=== PATIENT | female | born 1940 | race Caucasian/White ===

== ENCOUNTER 2017-01-28 02:07 | Emergency (ER) | payer MEDICARE, OTHER ==
[~2017-01-28] VITALS: Ht 162.6 cm; Wt 74.1 kg
[~2017-01-28 02:07] MED LIST: ALBU18HF INH; CITA20TA11 PO; ERLO100T PO; FLUT12AE8 IH; FLUT9.9S NS; LOPE1TAB13 PO; METO25TA6 PO; MONT10TA23 PO; OXYC1TAB24 PO; PRAV20TA2 PO; PRE20 PO; WARF4TAB6 PO; ZOF8 PO
[2017-01-28 02:15] VITALS: BP 154/61; PULSE 81; RESP 24; O2SAT 94
--- NOTE | 2017-01-28 02:17 | ED.REPORT ---
HPI-Dyspnea / Wheezing Date of Service Jan 28, 2017 ED Provider: Jeevan Olivarez MD Patient is a 76 year old female with a history of pulmonary adenocarcinoma in remission, asthma, congestive heart failure, coronary artery disease, diabetes mellitus, hypertension, and paroxysmal atrial fibrillation who presents to the ED via EMS complaining of shortness of breath that awoke her from sleep this morning. She reports a 3 week history of productive cough. Patient reports that she has been intermittently short of breath since she developed a cough, but usually her symptoms improve with a nebulizer. She had 2x treatments this evening prior to calling EMS, 4x prior to arrival to the ED. She finished a course of Prednisone last week. She denies chest pain or a fever. Nursing Notes Stated Complaint: SHORT OF BREATH Chief Complaint: Respiratory Distress Nursing Notes Reviewed: Yes Allergies: Coded Allergies: Penicillins (Verified Allergy, Severe, Rash, 01/28/17) Scheduled Citalopram (Citalopram) 20 Mg Tablet 20 MG PO QAM Erlotinib HCl (Tarceva) 100 Mg Tablet 100 MG PO DAILY Fluticasone Propionate (Flovent HFA 110 mcg) 12 Gm Aer.w.adap 1 PUFF IH BID Fluticasone Propionate (Flonase Allergy Relief) 50 Mcg/Actuation [place].susp 9.9 ML NS DAILY Metoprolol Tartrate (Metoprolol Tartrate) 25 Mg Tablet 25 MG PO BID hold if b/p <105 or HR IS<60 Montelukast (Montelukast) 10 Mg Tablet 10 MG PO HS Pravastatin (Pravastatin) 20 Mg Tablet 20 MG PO am Prednisone (PredniSONE) 20 Mg Tablet 20 MG PO DAILY Warfarin Sodium (Warfarin Sodium) 4 Mg Tablet 4 MG PO DAILY Scheduled PRN Albuterol Sulfate (Ventolin HFA Inhaler) 200 Puff/18 Gm Inhaler 1 PUFF INH Q4 PRN PRN For Wheezing Loperamide/Simethicone (Imodium Multi-Symptom Rel Cplt) 1 Each Tablet 1 EACH PO PRN PRN PRN For Diarrhea or Loose Stool 2 tabs on first episode of diarrhea, then 1 tab for any further diarrhea Ondansetron (Zofran) 8 Mg Tablet 8 MG PO TID PRN PRN For Nausea oxyCODONE-Acetaminophen 5-325 mg (oxyCODONE-Acetaminophen 5-325 mg) 1 Each Tablet 1-2 TAB PO Q4H PRN PRN For Pain oxyCODONE-Acetaminophen 5-325 mg (oxyCODONE-Acetaminophen 5-325 mg) 1 Each Tablet 1-2 TAB PO Q6H PRN PRN For Pain General Time Seen by MD: 02:16 Chief Complaint Shortness of breath Hx Obtained From: Patient Arrived By: Ambulance Sudden in Onset?: No Onset Occurred: 1 - 4 hours ago Location: : None Severity: Current: No pain currently Severity: Maximum: No pain Recent Healthcare: No recent doctor visit, No recent hospitalization Similar Sx Previous: Yes Past Medical History Past Medical History Notes: Oncologist: Dr. Gonzalez Echocardiogram from March 03, 2011 showed LVEF of 60% to 65% with diastolic dysfunction. 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 Iron deficiency anemia Congestive heart failure, chronic, diastolic dysfunction Paroxysmal Atrial Fibrillation Peripheral vascular disease Reports: Asthma, Congestive heart failure, Coronary artery disease, Diabetes mellitus, Hyperlipidemia, Hypertension Past Surgical History Hemorrhoidectomy Lower extremity stents left nephrectomy Reports: Hysterectomy, Tonsillectomy Family History noncontributory Smoking History Former Smoker Social History Alcohol Use: "Social" Drug Use: Denies drug use Other Social History: Good social support, Local resident Occupation Noncontributory Ambulatory Status Independent Review of Systems Constitutional: Denies: Fever Respiratory: Reports: Non-productive cough (moist), Shortness of breath Cardiovascular: Denies: Chest pain, Palpitations Complete sys rev & neg: except as marked. Physical Exam Initial Vital Signs Vital Signs (First) Date Time Temp Pulse Resp B/P Pulse Ox O2 Delivery O2 Flow Rate FiO2 01/28/17 02:15 36.8 81 24 154/61 94 Room Air 01/28/17 04:35 2 Initial VS: Reviewed, Vital signs normal Head / Eyes: Atraumatic, Normocephalic, PERRL Skin: Warm, Dry, No cyanosis Neurologic: Alert, Oriented, Nonfocal Psychiatric: Mood/affect normal, Behavior normal, Normal thought content General/Constitutional: Awake, Alert Neck: Supple, No JVD Respiratory / Chest: No rales, No rhonchi Wheezing / Retractions: Positive: Accessory muscle use mod, Wheeze insp/exp diffuse (all lung wallace) Cardiovascular: Regular rhythm, Heart sounds NL Heart Rate / Rhythm: Positive: Tachycardia ENT: Airway patent, Mucous membranes moist Abdomen: Soft, Non-tender, No guarding, No rebound Lower Extremity / Pelvis / MS: No swelling, No edema Upper Extremity / MS: No swelling, No edema Interpretation & Diagnostics Interpretation & Diagnostics: NEGATIVE FOR INFLUENZA TYPE A AND B Lab Results Interpretation Result Diagram: 01/28/17 02101/28/17 021 Test 01/28/17 02:10 White Blood Count 5.6th/mm3 (3.8-10.1) Red Blood Count 3.56mil/mm3 (3.90-5.20) Hemoglobin 11.2g/dL (12.0-15.6) Hematocrit 35.1% (35.0-46.0) Mean Corpuscular Volume 98.6fL (81-100) Mean Corpuscular Hemoglobin 31.5pg (27.0-35.0) Mean Corpuscular Hemoglobin Concent 31.9% (32.0-37.0) Red Cell Distribution Width 16.1% (12.3-15.4) Platelet Count 225bil/L (150-400) Neutrophils (%) (Auto) 46.5% (40-74) Lymphocytes (%) (Auto) 22.2% (14-46) Monocytes (%) (Auto) 8.7% (4-12) Eosinophils (%) (Auto) 22.0% (0-5) Basophils (%) (Auto) 0.4% (0-3) Hold Purple Top Tube Received (Received) Hold Blue Top Tube Received (Received) Sodium Level 141mEq/L (134-144) Potassium Level 4.0mEq/L (3.5-5.2) Chloride Level 103mEq/L (97-108) Carbon Dioxide Level 21mmol/L (18-29) Blood Urea Nitrogen 23mg/dL (8-27) Creatinine 1.15mg/dL (0.57-1.00) Estimat Glomerular Filtration Rate 65mL/min (>59) Glucose Level 115mg/dL (60-99) Calcium Level 8.6mg/dL (8.5-10.1) Total Bilirubin 0.2mg/dL (0.0-1.2) Aspartate Amino Transf (AST/SGOT) 30U/L (0-50) Alanine Aminotransferase (ALT/SGPT) 20U/L (0-32) Alkaline Phosphatase 54U/L (25-165) Troponin T 0.011ug/L (0.0-0.011) Pro-B-Type Natriuretic Peptide 748pg/mL (0-738) Total Protein 6.8g/dL (6.4-8.4) Albumin 3.7g/dL (3.4-5.0) Hold Red Top Tube Received (Received) Hold [place] Top Tube Received (Received) Lab values outside NL range: no clinical significance. ECG Interpretation ECG Interpretation: Sinus rhythm, Rate [address] changes in lateral leads Time: 02:57 Interpreted by: ED physician Normal ECG Interpretation: No acute ischemic changes X-Ray Chest Interpretation Chest Xray Interpretation: Impression: Large hiatal hernia. No acute cardiopulmonary process. View: Portable Interpretation / Wet Read by: Wet read ED physician Re-Eval/Medical Decision Med Decision/Clinical Course 76-year-old female who presents with an acute exacerbation of asthma. She was treated with DuoNeb followed by continuous albuterol and IV Solu-Medrol with eventual clearing. Chest x-ray is negative. She has some jitteriness secondary to her medications, this is common for her she is discharged home in improved condition on prednisone. She has sufficient of her other medications at home. Source of Hx: Old records Re-Evaluation/Progress #1: Time of Eval: 04:53 Re-Evaluation/Progress Note: Rechecked the patient. Discussed the results of her EKG, chest x-ray, and labs. She states that the treatment has made her feel jittery and nauseated. Her breathing is mildly improved. She will receive an additional breathing treatment. Re-Evaluation/Progress #2: Time of Eval: 05:53 Re-Evaluation/Progress Note: Rechecked the patient. She states that she feels improved and that she would like to be discharged home. Discharge instructions and follow-up discussed. All questions were addressed. Return to the ED warnings given. Counseled Regarding: Diagnosis, Lab results, Need for follow-up, When/why to return to ED Discharge & Departure Impression: Primary Impression: Asthma exacerbation Disposition: Home Discharge Condition All VS Reviewed: Yes Condition: Stable Patient Instructions: Asthma (ED) Additional Instructions: Continue your breathing treatments at home. Restart prednisone 20 mg by mouth 3 times a day for 5 days, #15 dispensed. Follow-up with your regular doctor for further evaluation. Referrals: Bret New MD (PCP) Scribe Attestation Portions of this note were transcribed by Tonia Dean. I, Dr. Olivarez personally performed the history, physical exam and medical decision-making; I reviewed and confirmed the accuracy of the information in the transcribed note. Signed by: Bessy Chappell, 01/28/2017 0608 copies to: Bret New MD, Howard L MD Jan 28, 2017 02:17 Tonia Dean Jan 28, 2017 02:26
[2017-01-28] MEDS ORDERED: MethylprednisoLONE Sodium Succinate 62.5 mg/mL 2 mL Inj IVPUSH ONE (02:30)
[2017-01-28] MEDS ORDERED: Albuterol-Ipratropium 3 mL Inhalation Solution NEB ONE (02:30)
[2017-01-28] MEDS ORDERED: Albuterol 2.5 mg/3 mL Inhalation Solution NEB ONE ×2 (02:30→05:00)
[2017-01-28 02:47] LABS: BASOPHILS % (AUTO) 0.4 % (0-3); MONOCYTES % (AUTO) 8.7 % (4-12); Mean Corpuscular Hemoglobin 31.5 pg (27.0-35.0); Mean Corpuscular Volume 98.6 fL (81-100); NEUTROPHILS % (AUTO) 46.5 % (40-74); Platelet Count 225 bil/L (150-400)
[2017-01-28 03:06] LABS: TROPONIN T 0.011 ug/L (0.0-0.011)
[2017-01-28 04:35] VITALS: BP 111/34; PULSE 68; RESP 19; O2SAT 92
[2017-01-28 05:00] VITALS: PULSE 70; RESP 20; O2SAT 96
[2017-01-28] MEDS ORDERED: Ondansetron 2 mg/mL 2 mL Inj IVPUSH PRN (05:00)
[2017-01-28 05:13] VITALS: PULSE 77; RESP 20; O2SAT 95
[2017-01-28 06:40] VITALS: BP 131/40; PULSE 68; RESP 18; O2SAT 94
[2017-01-28] MEDS ORDERED: PRE20 PO (06:58)
[2017-01-28 07:23] VITALS: BP 131/40; PULSE 68; RESP 18; O2SAT 94
--- NOTE | 2017-01-28 09:28 | DRSVH ---
PROCEDURE: X-RAY CHEST ONE VIEW, PORTABLE ([id number]) INDICATIONS: dyspnea TECHNIQUE: One view of the chest was acquired. COMPARISON: [facility], CT, CT CHEST ABD PELVIS W CON, 01/19/2017, 12:42. [facility], CR, XR CHEST 2VW, 12/08/2016, 13:00. [facility], CR, XR CHEST 2VW, 10/25/2016, 13:10. FINDINGS: Surgical changes and devices: None. Lungs and pleura: Left upper lobe masslike opacity redemonstrated. Air space opacity within the mid right lung left lung base. Large hiatal hernia redemonstrated. Mediastinum: Mediastinal contours appear normal. Heart size is normal. Bones and chest wall: No suspicious bony lesions. Overlying soft tissues appear unremarkable. IMPRESSION: 1. Right upper lobe masslike opacity. 2. Airspace opacity within the mid right lung and left lung base consistent with atelectasis, aspirat ion or pneumonia. Dictated by: Anjel Frank [facility] Interpreted: Yulia Thayer MD on 01/28/2017 at 9:27 Transcribed by: CHUCK on 01/28/2017 at 9:28 Approved by: Yulia Thayer MD, PhD on 01/28/2017 at 17:03
[2017-02-23] MEDS ORDERED: ZOLP5TAB6 PO (08:54)
[2017-02-23] MEDS ORDERED: DOXY100C2 PO (08:54)
[2017-02-23] MEDS ORDERED: ALBU0.63 INHALATION (08:54)
== END 2017-01-28 07:24 | disposition home or self-care (01) ==
LOC: SED 02:07
DX: J45.901 Unspecified asthma with (acute) exacerbation (principal); I50.9 Heart failure, unspecified; E11.9 Type 2 diabetes mellitus without complications; I25.10 Atherosclerotic heart disease of native coronary artery without angina pectoris; I10 Essential (primary) hypertension; Z85.118 Personal history of other malignant neoplasm of bronchus and lung; Z86.79 Personal history of other diseases of the circulatory system; Z85.528 Personal history of other malignant neoplasm of kidney; Z90.5 Acquired absence of kidney; Z87.891 Personal history of nicotine dependence; Z79.01 Long term (current) use of anticoagulants; Z79.52 Long term (current) use of systemic steroids; Z79.51 Long term (current) use of inhaled steroids; Z88.0 Allergy status to penicillin
CPT/HCPCS: 36415; 71010; 80053; 83880; 84484; 85025; 87804; 93005; 94640; 94664; 96374; 99285; J2930; J7613; J7620

== ENCOUNTER 2017-02-23 20:50 | Emergency (ER) | payer MEDICARE, OTHER ==
[~2017-02-23] VITALS: Ht 167.6 cm; Wt 73.6 kg
[~2017-02-23 20:50] MED LIST changes: +ALBU0.63 INHALATION; +DOXY100C2 PO; +ZOLP5TAB6 PO
[2017-02-23 20:55] VITALS: BP 194/90; PULSE 80; RESP 22; O2SAT 91
--- NOTE | 2017-02-23 21:12 | ED.REPORT ---
HPI-General Illness Date of Service Feb 23, 2017 ED Provider: Neno Yu MD 76 year old female with a history of stage IV pulmonary adenocarcinoma, asthma, CHF, CAD, paroxysmal atrial fibrillation on anticoagulation therapy, DM, and HTN presents to the ER accompanied by her daughter complaining of several weeks of shortness of breath, worsening today with chest pain. Associated symptoms include generalized weakness, productive cough with white and yellow sputum, "burning in her throat", and pain with inspiration. She was seen here in the ER three weeks ago for similar. Patient is scheduled to have an endoscopy tomorrow. Nursing Notes Stated Complaint: ASTHMA ATTACK/CAN NOT BREATH Chief Complaint: Respiratory Distress Nursing Notes Reviewed: Yes Allergies: Coded Allergies: Penicillins (Verified Allergy, Severe, Rash, 02/23/17) Scheduled Beclomethasone Dipropionate (Qvar) 8.7 Gm Aer.w.adap 1 PUFF INHALATION BID Citalopram (Citalopram) 20 Mg Tablet 20 MG PO QAM Doxycycline Hyclate (Doxycycline Hyclate) 100 Mg Capsule 100 MG PO TID Erlotinib HCl (Tarceva) 100 Mg Tablet 100 MG PO DAILY Metoprolol Tartrate (Metoprolol Tartrate) 25 Mg Tablet 25 MG PO BID hold if b/p <105 or HR IS<60 Montelukast (Montelukast) 10 Mg Tablet 10 MG PO HS Pravastatin (Pravastatin) 20 Mg Tablet 20 MG PO am Prednisone (PredniSONE) 20 Mg Tablet 20 MG PO DAILY Prednisone (PredniSONE) 20 Mg Tablet 20 MG PO TID Prednisone (PredniSONE) 20 Mg Tablet 60 MG PO DAILY Warfarin Sodium (Warfarin Sodium) 4 Mg Tablet 4 MG PO DAILY Scheduled PRN Albuterol Neb Soln (Albuterol Neb Soln) 0.63 Mg/3 Ml Vial.neb 0.63 MG INHALATION Q4H PRN PRN For Shortness of Breath Albuterol Sulfate (Ventolin HFA Inhaler) 200 Puff/18 Gm Inhaler 1 PUFF INH Q4 PRN PRN For Wheezing Loperamide/Simethicone (Imodium Multi-Symptom Rel Cplt) 1 Each Tablet 1 EACH PO PRN PRN PRN For Diarrhea or Loose Stool 2 tabs on first episode of diarrhea, then 1 tab for any further diarrhea Ondansetron (Zofran) 8 Mg Tablet 8 MG PO TID PRN PRN For Nausea Zolpidem (Zolpidem) 5 Mg Tablet 5 MG PO HS PRN PRN For Insomnia oxyCODONE-Acetaminophen 5-325 mg (oxyCODONE-Acetaminophen 5-325 mg) 1 Each Tablet 1-2 TAB PO Q4H PRN PRN For Pain General Time Seen by MD: 21:11 Chief Complaint Chest pain, Other (Shortness of Breath) Hx Obtained From: Patient Arrived By: Walk-in Sudden in Onset?: No Onset Occurred: More than a week ago... ("several weeks") Symptom Duration: Since onset Associated with: Reports: Chest pain, Difficulty breathing, Weakness Context Related History: Reports Cancer, Reports Diabetes mellitus Similar Sx Previous: Yes Past Medical History Past Medical History Notes: Oncologist: Dr. Gonzalez Echocardiogram from March 03, 2011 showed LVEF of 60% to 65% with diastolic dysfunction. 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 Iron deficiency anemia Congestive heart failure, chronic, diastolic dysfunction Paroxysmal Atrial Fibrillation Peripheral vascular disease Reports: Asthma, Congestive heart failure, Coronary artery disease, Diabetes mellitus, Hyperlipidemia, Hypertension Past Surgical History Hemorrhoidectomy Lower extremity stents left nephrectomy Reports: Hysterectomy, Tonsillectomy Family History noncontributory Smoking History Former Smoker Social History Alcohol Use: "Social" Drug Use: Denies drug use Other Social History: Good social support, Local resident Occupation Noncontributory Ambulatory Status Independent Review of Systems Full Review of Systems Constitutional: Reports: Weakness - generalized, Denies: Chills, Fever Respiratory: Reports: Prod cough, white, Prod cough, yellow, Shortness of breath, Denies: Hemoptysis Cardiovascular: Reports: Chest pain GI: Denies: Abdominal pain, Constipation, Nausea, Vomiting Complete sys rev & neg: except as marked. Physical Exam Vital Signs Vital Signs Date Time Temp Pulse Resp B/P Pulse Ox O2 Delivery O2 Flow Rate FiO2 02/24/17 01:11 36.7 21 21 103/56 93 Room Air 02/24/17 00:16 84 24 109/61 97 Nasal Cannula 2 02/24/17 00:03 78 21 97 Nasal Cannula 3 02/23/17 22:30 74 20 100 Nasal Cannula 2 02/23/17 20:55 36.6 80 22 194/90 91 Room Air Initial VS: Reviewed Head / Eyes: Atraumatic, Normocephalic Neck: Supple, Non-tender, Full range of motion Abdomen / GI: Soft, Non-tender, No guarding, No rebound, No distention Extremities: Vascular intact, Neuro intact, No swelling, No tenderness Skin: Warm, Dry, No cyanosis Neurologic: Alert, Oriented, Nonfocal Psychiatric: Mood/affect normal, Behavior normal, Normal thought content General/Constitutional: Awake, Alert, Well developed Respiratory / Chest: No chest tenderness, No chest wall deformity Wheezing / Retractions: Positive: Wheeze insp/exp diffuse, Wheezing moderate Cardiovascular: Heart rate NL, Regular rhythm, Heart sounds NL, Cap refill not delayed, Peripheral circulation NL Right foot swelling. Interpretation & Diagnostics Lab Results Interpretation Result Diagram: 02/23/17213402/23/[id number] Test 02/23/17 21:35 02/23/17 21:50 White Blood Count 6.0th/mm3 (3.8-10.1) Red Blood Count 3.84mil/mm3 (3.90-5.20) Hemoglobin 12.5g/dL (12.0-15.6) Hematocrit 37.8% (35.0-46.0) Mean Corpuscular Volume 98.4fL (81-100) Mean Corpuscular Hemoglobin 32.6pg (27.0-35.0) Mean Corpuscular Hemoglobin Concent 33.1% (32.0-37.0) Red Cell Distribution Width 14.9% (12.3-15.4) Platelet Count 241bil/L (150-400) Neutrophils (%) (Auto) 44.6% (40-74) Lymphocytes (%) (Auto) 17.5% (14-46) Monocytes (%) (Auto) 8.7% (4-12) Eosinophils (%) (Auto) 28.5% (0-5) Basophils (%) (Auto) 0.5% (0-3) Prothrombin Time 9.9sec (8.1-12.5) Prothromb Time International Ratio 0.93ratio Activated Partial Thromboplast Time 26.6sec (22.8-33.0) Sodium Level 139mEq/L (134-144) Potassium Level 3.5mEq/L (3.5-5.2) Chloride Level 100mEq/L (97-108) Carbon Dioxide Level 22mmol/L (18-29) Blood Urea Nitrogen 19mg/dL (8-27) Creatinine 1.13mg/dL (0.57-1.00) Estimat Glomerular Filtration Rate 67mL/min (>59) Glucose Level 116mg/dL (60-99) Lactic Acid Level 1.2mmol/L (0.4-2.0) Calcium Level 9.9mg/dL (8.5-10.1) Magnesium Level 1.8mg/dL (1.6-2.6) Total Bilirubin 0.5mg/dL (0.0-1.2) Aspartate Amino Transf (AST/SGOT) 26U/L (0-50) Alanine Aminotransferase (ALT/SGPT) 15U/L (0-32) Alkaline Phosphatase 58U/L (25-165) Troponin T 0.010ug/L (0.0-0.011) Pro-B-Type Natriuretic Peptide 994.9pg/mL (0-738) Total Protein 7.7g/dL (6.4-8.4) Albumin 4.1g/dL (3.4-5.0) Procalcitonin 0.04ng/mL (0.00-0.08) Hold [place] Top Tube Received (Received) ECG Interpretation ECG Interpretation: Sinus rhythm PAC Time: 21:21 Interpreted by: ED physician Normal ECG Interpretation: No acute ischemic changes X-Ray Chest Interpretation Chest Xray Interpretation: IMPRESSION: 1. No definite acute changes. 2. Left suprahilar mass redemonstrated as well as bilateral perihilar linear scarring and a right basilar nodular opacity. Peripheral right midlung focal thickening is also again noted. 3. Large hiatal hernia. Dictated by: Rich Schulz M.D. on 02/23/2017 at 21:28 Approved by: Rich Schulz M.D. on 02/23/2017 at 21:32 View: Portable, 1 view Interpretation / Wet Read by: Interpret - Radiologist Re-Eval/Medical Decision Med Decision/Clinical Course 76-year-old known history of asthma/COPD presents with overt wheezing and coughing. X-rays unchanged from previous. She has had no change in the abnormalities associated with her lung cancer. She has responded nebulizers here. Her wheezing has returned in the setting of stopping her prednisone, and this is been a repetitive pattern. She is begun again with prednisone 60 mg daily for a week. She is not currently on an inhaled steroid and will start that on the last day. May need to be chronically on low-dose prednisone for the short term. She is had a chronic eosinophilia noted as far back as 2008, and has eosinophilia again tonight. No likely immediate clinical significance. Follow-up with PCP Dr. New. Source of Hx: Old records Time of Eval: 23:36 Re-Evaluation/Progress Note: Discussed x-ray results. Wheezing persists. Discussed plan for discharge pending second breathing treatment. Time of Eval: 23:58 Patient Status: Condition improved, Moderate relief Re-Evaluation/Progress Note: Patient reports improvement of respiratory symptoms. Speaking through nebulizer. Time of Eval: 00:36 Patient Status: Condition improved Re-Evaluation/Progress Note: Patient is amenable to the plan to discharge. Patient is amenable to the plan. Return precautions given. All other questions addressed. Counseled Regarding: Diagnosis, Lab results, Need for follow-up, When/why to return to ED Discharge & Departure Primary Impression: Asthma exacerbation Additional Impression: Eosinophilia Disposition: Home Discharge Condition All VS Reviewed: Yes Condition: Stable Patient Instructions: Asthma (DC) Additional Instructions: Resume prednisone at 60 mg (three tablets) daily for seven days. On the last day of prednisone begin Qvar one puff twice daily. You may need to be on a low dose of prednisone as an ongoing med. Follow-up with your doctor in this next week to reevaluate you and make a decision about ongoing steroid therapy. Return if worsening breathing despite treatment. There is no evidence of pneumonia or any indication for antibiotics at present. Referrals: Bret New MD (PCP) Scribe Attestation Portions of this note were transcribed by Marco Walter. I, Dr. Yu, personally performed the history, physical exam and medical decision making; I reviewed and confirmed the accuracy of the information in the transcribed note. Signed by: Bessy Cardozo. 02/24/2017 at 00:37 copies to: Bret New MD, Christopher W MD Feb 23, 2017 21:12 MARCO WALTER Feb 23, 2017 21:21
[2017-02-23] MEDS ORDERED: Albuterol-Ipratropium 3 mL Inhalation Solution NEB ONE ×2 (21:25→23:40)
[2017-02-23] MEDS ORDERED: Famotidine Inj 20 MG in IV Premix 1 EACH IV ONE (21:25)
[2017-02-23] MEDS ORDERED: Albuterol 2.5 mg/3 mL Inhalation Solution NEB ONE ×2 (21:25→23:40)
[2017-02-23] MEDS ORDERED: MethylprednisoLONE Sodium Succinate 62.5 mg/mL 2 mL Inj IVPUSH ONE (21:25)
--- NOTE | 2017-02-23 21:34 | DRSVH ---
PROCEDURE: X-RAY CHEST ONE VIEW, PORTABLE ([id number]) INDICATIONS: Chest pain TECHNIQUE: One view of the chest was acquired. COMPARISON: [facility], CT, CT CHEST ABD PELVIS W CON, 01/19/2017, 12:42. [facility], CR, XR CHEST 1VW (PORTABLE), 01/28/2017, 2:41. FINDINGS: Surgical changes and devices: None. Lungs and pleura: The left suprahilar mass appears similar to the prior study. A peripheral region of pleural thickening in the right midlung zone appears unchanged. Linear basilar opacities are agai n noted compatible with scarring. A small right basilar nodule seen on prior CT is noted in the righ t lung base. No pleural effusions or pneumothorax. Mediastinum: Mediastinal contours appear unchanged. There is a large hyperkalemia redemonstrated. H eart size is normal. Bones and chest wall: No suspicious bony lesions. Overlying soft tissues appear unremarkable. IMPRESSION: 1. No definite acute changes. 2. Left suprahilar mass redemonstrated as well as bilateral perihilar linear scarring and a right ba silar nodular opacity. Peripheral right midlung focal thickening is also again noted. 3. Large hiatal hernia. Dictated by: Rich Schulz M.D. on 02/23/2017 at 21:28 Approved by: Rich Schulz M.D. on 02/23/2017 at 21:32
[2017-02-23 21:45] LABS: BASOPHILS % (AUTO) 0.5 % (0-3); EOSINOPHILS % (AUTO) 28.5 % (0-5); MONOCYTES % (AUTO) 8.7 % (4-12); Mean Corpuscular Hemoglobin 32.6 pg (27.0-35.0); Mean Corpuscular Volume 98.4 fL (81-100); NEUTROPHILS % (AUTO) 44.6 % (40-74); Platelet Count 241 bil/L (150-400)
[2017-02-23 22:13] LABS: INR 0.93 ratio
[2017-02-23 22:18] LABS: TROPONIN T 0.01 ug/L (0.0-0.011)
[2017-02-23 22:30] VITALS: PULSE 74; RESP 20; O2SAT 100
[2017-02-23 22:30] LABS: Magnesium 1.8 mg/dL (1.6-2.6)
[2017-02-24 00:03] VITALS: PULSE 78; RESP 21; O2SAT 97
[2017-02-24 00:16] VITALS: BP 109/61; PULSE 84; RESP 24; O2SAT 97
[2017-02-24] MEDS ORDERED: PRE20 PO (00:33)
[2017-02-24] MEDS ORDERED: BECL8.7A5 INHALATION (00:33)
[2017-02-24 01:11] VITALS: BP 103/56; PULSE 21; RESP 21; O2SAT 93
== END 2017-02-24 00:57 | disposition home or self-care (01) ==
LOC: SED 20:50
DX: J45.901 Unspecified asthma with (acute) exacerbation (principal); D72.1 Eosinophilia; I11.0 Hypertensive heart disease with heart failure; I25.10 Atherosclerotic heart disease of native coronary artery without angina pectoris; I48.0 Paroxysmal atrial fibrillation; E11.59 Type 2 diabetes mellitus with other circulatory complications; E78.5 Hyperlipidemia, unspecified; J44.9 Chronic obstructive pulmonary disease, unspecified; Z79.01 Long term (current) use of anticoagulants; Z87.891 Personal history of nicotine dependence; Z88.0 Allergy status to penicillin
CPT/HCPCS: 36415; 71010; 80053; 83605; 83735; 83880; 84145; 84484; 85025; 85610; 85730; 86317; 87040; 93005; 94644; 96374; 96375; 99285; J2930; J3490; J7613; J7620

== ENCOUNTER 2017-03-08 10:43 | Day surgery (SDC) | payer MEDICARE, OTHER ==
[~2017-03-08 10:43] MED LIST changes: +BECL8.7A5 INHALATION; -FLUT12AE8 IH; -FLUT9.9S NS; +Lactated Ringer's 1,000 ML IV ONE; +Lidocaine Topical 2% 30 mL Jelly ONE
== END 2017-03-08 23:59 | disposition home or self-care (01) ==
LOC: END 10:43
PROVIDERS: ATTEND Surgery
DX: K44.9 Diaphragmatic hernia without obstruction or gangrene (principal)

== ENCOUNTER 2017-03-17 14:25 | Day surgery (SDC) | payer MEDICARE, OTHER ==
[~2017-03-17] VITALS: Ht 167.6 cm; Wt 74.0 kg
[~2017-03-17 14:25] MED LIST changes: -Lidocaine Topical 2% 30 mL Jelly ONE
[2017-03-17] MEDS ORDERED: Propofol 10,000 mCg/mL 20 mL Inj ONE (14:26)
[2017-03-17] MEDS ORDERED: fentaNYL-PF 50 mCg/mL 2 mL Inj ONE (14:26)
[2017-03-17 14:55] VITALS: BP 149/74; PULSE 58; RESP 17; O2SAT 98
--- NOTE | 2017-03-17 15:05 | PCM.HPANE ---
Patient Data Surgeon Admitting Provider: Attending Provider:Jossie Zhang MD Primary Care Physician:Bret New MD Other Provider:[facility] Reason for Visit Paraesophageal Hernia Ht/WT & BMI Body Mass Index Allergies Coded Allergies: Penicillins (Verified Allergy, Severe, Rash, 02/23/17) Past Anesthesia History Anesthesia History: Denies:: Anesthesia Reactions, Malignant Hyperthermia Diabetes History Hx Diabetes?: Yes Type of Diabetes: Type II Glycemic Control: Diet Controlled MRSA MRSA: No Medications Blood Thinner: Coumadin Hypertension Medication: Yes Home Meds Incl Beta Fox: Yes Date Beta Fox Taken: March 17, 2017 Time Beta Fox Taken: 07:00 Active Scripts oxyCODONE-Acetaminophen 5-325 mg 1 Each Tablet1-2 Tab PO Q4H PRN For Pain #40 TABLET Prov:Brooke Chaudhary DO 06/02/16 Albuterol Sulfate (Ventolin HFA Inhaler)200 Puff/18 Gm Inhaler1 Puff INH Q4 PRN For Wheezing #1 Prov:Yana Fish MD 01/11/16 Reported Medications Zolpidem 5 Mg Tablet5 Mg PO HS PRN For Insomnia Ref 0 02/23/17 Albuterol Neb Soln 0.63 Mg/3 Ml Vial.neb0.63 Mg INHALATION Q4H PRN For Shortness of Breath Ref 0 02/23/17 Prednisone (PredniSONE)20 Mg Kqflue48 Mg PO DAILY Ref 0 09/15/16 Warfarin Sodium 4 Mg Tablet4 Mg PO DAILY 30 Days Ref 0 04/07/16 Loperamide/Simethicone (Imodium Multi-Symptom Rel Cplt)1 Each Tablet1 Each PO PRN PRN For Diarrhea or Loose Stool 2 tabs on first episode of diarrhea, then 1 tab for any further diarrhea 08/08/15 Erlotinib HCl (Tarceva)100 Mg Ifabzv222 Mg PO DAILY 08/01/15 Metoprolol Tartrate 25 Mg Bkwkjo94 Mg PO BID 30 Days Ref 0 hold if b/p <105 or HR IS<60 06/24/15 Ondansetron (Zofran)8 Mg Tablet8 Mg PO TID PRN For Nausea 06/09/15 Citalopram 20 Mg Wrwvvo31 Mg PO QAM 06/09/15 Pravastatin 20 Mg Nxreug96 Mg PO am 03/30/14 Discontinued Reported Medications Doxycycline Hyclate 100 Mg Nbgyfhs093 Mg PO BID 02/23/17 Montelukast 10 Mg Lheddo00 Mg PO HS Ref 0 05/21/16 Discontinued Scripts Beclomethasone Dipropionate (Qvar)8.7 Gm Aer.w.adap1 Puff INHALATION BID #8.7 GM Prov:Neno Yu MD 02/24/17 Prednisone (PredniSONE)20 Mg Irbdgi04 Mg PO DAILY #21 TABLET Prov:Neno Yu MD 02/24/17 Prednisone (PredniSONE)20 Mg Wunmcb20 Mg PO TID #15 TABLET Prov:Jeevan Olivarez MD 01/28/17 History History of ENT Problems?: Yes HEENT History: Positive for:: Cataracts Dysphagia (post cancer treatment, occasional difficulty) Sinus Problem (SEASONAL ALLERGIES S/P SINUS SURGERY) Denture Type: Full- Upper Teeth Condition: Within Normal Limits Hx of Heart Problems?: Yes Cardiovascular History: Positive for:: Atrial Fibrillation Chest Pain (EXERTIONAL) Congestive Heart Failure Edema (LE) Hypertension Irregular Heartbeat (PAF) Denies:: Cardiac Surgery Heart Murmur (ECHO 06/2015 EF 60-65%) Pacemaker Thrombophlebitis Valvular Heart Disease Hx of Respiratory Problem?: Yes Respiratory History: Positive for:: Asthma COPD Dyspnea (COLLIER W/ WHEEZING) Hemoptysis (01/08/2016) Pneumonia Denies:: Chest Surgery (LUNG CA S/P PORTACATH) Emphysema Tuberculosis Use of C-PAP Machine Hx Neurologic Problems?: Yes Neurological History: Positive for:: Dizziness Denies:: Alzheimer's Disease CVA Dementia Headaches Parkinson's Disease Seizures Hx of GI Problems?: Yes Hx of Problems?: Yes Genitourinary History: Positive for:: Urinary Tract Infection Denies:: HX of Hemodialysis Kidney Stones HX of Peritoneal Dialysis: No Female Hx: Denies:: Currently (S/P BTL) Endometriosis Pelvic Inflammatory Problems with Breasts? Skin History: Denies:: History Skin Disorders? Pressure Ulcers Hx Musculoskeletal Problems?: Yes Musculoskeletal History: Positive for:: Musculoskeletal Trauma Denies:: Back Injury Joint Replacement Hx of Psycho/Social Problems?: Yes Psycho Social History: Positive for:: Hx Depression Denies:: Anxiety Bipolar Disorder Suicide Attempt Hx Surgeries?: Yes (TONSIL,Tubal,HYST,L kidney, SINUS, Port placement, STENT PAD) Hx Any Other Health Problems?: Yes Other History: Positive for:: Cancer (LUNG, LT RENAL CELL CA) Hospitalization (pneumonia, lung CA, tachycardia, afib, bloody stool) Denies:: Endocrine Disease Thyroid Disease History Blood Transfusions: Denies:: Blood Transfuse Reaction Blood Transfusions Hx Diabetes: Yes Hx Alcohol Use: NoHx Substance Use: No Smoking Status: Former Smoker Have You Smoked inLast 12 mo: No Stop/Bang Risk Assessment Category Category 1A: Patient has history of documented sleep apnea, and HAS NOT received any narcotic, sedative or anesthesia administration during this stay. Category 1B: Patient has history of documented sleep apnea, and HAS received any narcotic , sedative or anesthesia administration during this stay Category 2: Patient has SUSPECTED Obstructive Sleep Apnea, and HAS received any narcotic , sedative or anesthesia administration during this stay. Category 3: Patient has SUSPECTED Obstructive Sleep Apnea and HAS NOT received narcotic, sedative or anesthesia administration during this stay. Category 4: Outpatient in Procedural Areas with known sleep apnea or who screen positive for High Risk via the STOP/BANG questionnaire. Exam Exam General Appearance: Alert, Oriented X3, Cooperative, No Acute Distress HEENT/AIRWAY: MP 2 Lungs: Wheezes Heart: Other (irregular) Plan Impression Patient chart reviewed, patient interviewed and anesthestic plan with risks, benefits, and alternatives discussed, and informed consent obtained. NPO per Anesth. Guidelines: Yes ASA Physical Status: ASA3 Severe Disease Anesthetic Plan: MAC Bene/Risks/Altern/Consents: Yes HP Complete Prior to Induction: Yes Jeremiah Caceres MD March 17, 2017 15:05
[2017-03-17 16:14] VITALS: BP 144/69; PULSE 60; RESP 14; O2SAT 94
--- NOTE | 2017-03-17 16:16 | PCM.ANEP1 ---
Post Anesthesia Phase 1 PACU Phase 1 Assessment Vital Signs see anesthesia record Vital Signs Date Time Temp Pulse Resp B/P Pulse Ox O2 Delivery O2 Flow Rate FiO2 03/17/17 14:55 58 17 149/74 98 Room Air Anesthetic Administered: GA Level of Alertness: Awake, talking ROJAS's with Equal Strength: Yes Pain: No Nausea or Vomiting: No Cardiovascular Function and Hy: Yes Oxygen Delivery: Room Air Lungs: Wheezes Dermatome Level: Full Sensation Complications: No Follow up Care: No Jeremiah Caceres MD March 17, 2017 16:16
[2017-03-17 16:27] VITALS: BP 151/69; PULSE 60; RESP 14; O2SAT 98
--- NOTE | 2017-03-18 00:16 | ENDO ---
[address] [address] ENDOSCOPY PROCEDURE PATIENT: HEATHER GIBBS I : 1940 MR#: [id number] ADMIT: 03/17/2017 JOB ID: [id number] DATE OF PROCEDURE: 03/17/2017 PREPROCEDURE DIAGNOSIS: Large paraesophageal hernia. POSTPROCEDURE DIAGNOSIS: Large paraesophageal hernia. PROCEDURE PERFORMED: Upper endoscopy. SURGEON: Jossie Zhang MD. INSTRUMENT: Olympus [id number]. ANESTHESIA: Monitored anesthesia care. HISTORY OF PRESENT ILLNESS: This is a 76-year-old woman with a large paraesophageal hernia. She was evaluated for paraesophageal hernia repair; and therefore, preoperative upper endoscopy was indicated. FINDINGS: 1. Large paraesophageal hernia with approximately one half of the stomach in the chest. The diaphragmatic wai was at 41 cm and lower esophageal sphincter was at 36 cm. 2. Proximal mild esophagitis from 19-27 cm from the incisors. 3. Michael's erosions. 4. Mild diffuse gastritis. DESCRIPTION OF PROCEDURE: The patient was brought to the endoscopy suite and placed in left lateral decubitus position. Monitored anesthesia was induced. A bite block was placed. The endoscope was advanced into the esophagus. There was mild esophagitis from 19-27 cm. The patient has a history of radiation for lung cancer and it was thought that this may potentially be due to that. The endoscope was advanced to the GE junction, which was difficult to visualize because the distal esophagus was very tortuous, however, all mucosa appeared normal. The GE junction was at 36 cm. Approximately half of the stomach was in the chest and it appeared normal. The endoscope was advanced through the diaphragm at 41 cm into the distal stomach, which had mild diffuse gastritis and Michael's erosions. The duodenum was intubated to the proximal third portion and appeared normal. The endoscope was withdrawn slowly through the stomach and all mucosal surfaces were carefully inspected to rule out any sign of malignancy. Retroflexed examination revealed a large hiatal hernia and Michael's erosions. The endoscope was then withdrawn. There were no additional mucosal abnormalities or findings. The patient tolerated the procedure well. SPECIMENS: None. COMPLICATIONS: None. ESTIMATED BLOOD LOSS: None. MTDD
== END 2017-03-17 23:59 | disposition home or self-care (01) ==
LOC: END 14:25
PROVIDERS: ATTEND Surgery
DX: K44.9 Diaphragmatic hernia without obstruction or gangrene (principal); K29.70 Gastritis, unspecified, without bleeding; K20.9 Esophagitis, unspecified; I10 Essential (primary) hypertension; E78.5 Hyperlipidemia, unspecified; J44.9 Chronic obstructive pulmonary disease, unspecified; J45.909 Unspecified asthma, uncomplicated; K21.9 Gastro-esophageal reflux disease without esophagitis; E11.9 Type 2 diabetes mellitus without complications; I48.1 Persistent atrial fibrillation; I50.1 Left ventricular failure, unspecified; F32.9 Major depressive disorder, single episode, unspecified; I73.9 Peripheral vascular disease, unspecified; Z90.710 Acquired absence of both cervix and uterus; Z79.01 Long term (current) use of anticoagulants; Z85.118 Personal history of other malignant neoplasm of bronchus and lung; Z92.21 Personal history of antineoplastic chemotherapy; Z92.3 Personal history of irradiation; Z87.891 Personal history of nicotine dependence; Z85.53 Personal history of malignant neoplasm of renal pelvis
CPT/HCPCS: 43235; J3010; J7120

== ENCOUNTER 2017-03-30 12:29 | Inpatient (IN) | payer MEDICARE, OTHER ==
[2017-03-30] VITALS (7 sets, daily range): BP systolic 102–162; BP diastolic 66–75; PULSE 60–71; RESP 16–20; O2SAT 94–96
[~2017-03-30] VITALS: Ht 167.6 cm; Wt 77.8 kg
[~2017-03-30 12:29] MED LIST changes: -BECL8.7A5 INHALATION; -DOXY100C2 PO; -Lactated Ringer's 1,000 ML IV ONE; -MONT10TA23 PO
--- NOTE | 2017-03-30 12:51 | ED.REPORT ---
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 Associated symptoms include hemoptysis, neck pain and difficulty swallowing. The patient reports that she also has abdominal pain but this is not a new symptom. She denies fever, vomiting, nausea, hematochezia, chest pain , shortness of breath or drooling. The patient states that she tried to eat a donut this morning but felt like it got stuck in her throat and when she tries to swallow it feels like there is something poking her in the throat. The patient had an endoscopy two weeks ago and states that it was difficult and pain to get the tube down. She denies history of PE. Patient is currently on Coumadin. Nursing Notes Stated Complaint: SWOLLEN NECK/COUGHING UP BLOOD/DIFF SWALLOWING Chief Complaint: ENT & Mouth Nursing Notes Reviewed: Yes Allergies: Coded Allergies: Penicillins (Verified Allergy, Severe, Rash, 02/23/17) Scheduled Citalopram (Citalopram) 20 Mg Tablet 20 MG PO QAM Erlotinib HCl (Tarceva) 100 Mg Tablet 100 MG PO DAILY Fluticasone/Vilanterol (Breo Ellipta 200-25 Mcg INH) 200 Mcg-25 Mcg/Dose Blst.w.dev 1 PUFF INHALATION DAILY Furosemide (Furosemide) 20 Mg Tab 20 MG PO QAM Metoprolol Tartrate (Metoprolol Tartrate) 25 Mg Tablet 25 MG PO BID hold if b/p <105 or HR IS<60 Montelukast (Montelukast) 10 Mg Tablet 10 MG PO DAILY Pravastatin (Pravastatin) 20 Mg Tablet 20 MG PO QAM Warfarin Sodium (Warfarin Sodium) 4 Mg Tablet 4 MG PO HS Zolpidem (Zolpidem) 5 Mg Tablet 5 MG PO HS Scheduled PRN Albuterol Neb Soln (Albuterol Neb Soln) 0.63 Mg/3 Ml Vial.neb 0.63 MG INHALATION Q4H PRN PRN For Shortness of Breath Albuterol Sulfate (Ventolin HFA Inhaler) 200 Puff/18 Gm Inhaler 1 PUFF INH Q4 PRN PRN For Wheezing oxyCODONE-Acetaminophen 5-325 mg (oxyCODONE-Acetaminophen 5-325 mg) 1 Each Tablet 1-2 TAB PO Q4H PRN PRN For Pain General Time Seen by MD: 12:49 Chief Complaint Other (neck swelling) Hx Obtained From: Patient Arrived By: Walk-in Sudden in Onset?: Yes Onset Occurred: 46 - 59 minutes ago Symptom Duration: Since onset Location: : Neck Associated with: Reports: Difficulty swallowing, Neck pain, Denies: Fever, Vomiting Recent Healthcare: No recent hospitalization, Recent doctor visit Similar Sx Previous: No Past Medical History Past Medical History Notes: Oncologist: Dr. Gonzalez Echocardiogram from March 03, 2011 showed LVEF of 60% to 65% with diastolic dysfunction. 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 Iron deficiency anemia Congestive heart failure, chronic, diastolic dysfunction Paroxysmal Atrial Fibrillation Peripheral vascular disease Reports: Asthma, Congestive heart failure, Coronary artery disease, Diabetes mellitus, Hyperlipidemia, Hypertension Past Surgical History Hiatal hernia, scheduled for surgery Hemorrhoidectomy Lower extremity stents left nephrectomy Reports: Hysterectomy, Tonsillectomy Family History noncontributory Smoking History Former Smoker Social History Alcohol Use: "Social" Drug Use: Denies drug use Other Social History: Good social support, Local resident Occupation Noncontributory Ambulatory Status Independent Review of Systems neck swelling no drooling difficulty swallowing Full Review of Systems Constitutional: Denies: Fever Ears / Nose / Throat: Reports: Throat pain Respiratory: Reports: Hemoptysis, Denies: Shortness of breath Cardiovascular: Denies: Chest pain GI: Reports: Abdominal pain (not a new pain), Denies: Hematochezia, Nausea, Vomiting Musculoskeletal: Reports: Neck pain Complete sys rev & neg: except as marked. Physical Exam Vital Signs Vital Signs Date Time Temp Pulse Resp B/P Pulse Ox O2 Delivery O2 Flow Rate FiO2 03/30/17 16:02 67 16 154/67 95 Room Air 03/30/17 13:47 67 16 154/67 95 Room Air 03/30/17 12:54 96 Room Air 03/30/17 12:33 36.5 69 16 162/75 95 Room Air Initial VS: Reviewed General/Constitutional: Awake, Alert Head / Eyes: Atraumatic, Normocephalic, PERRL, EOMI ENT: Mucous membranes moist diffuse tenderness at the base of pallet and under the tongue minimal swelling Neck: Full range of motion 2x2cm submandibular swelling Respiratory / Chest: Atraumatic, Breath sounds NL, Breath sounds = bilat, No respiratory distress Cardiovascular: Heart rate NL, Regular rhythm, Heart sounds NL Abdomen: Atraumatic, Soft, Non-tender Skin: Atraumatic, Color NL, No rash, Warm, Dry Neurologic: Oriented X3, Speech NL, No motor deficits, No sensory deficits Psychiatric: Affect NL, Mood NL Interpretation & Diagnostics Interpretation & Diagnostics: SOFT TISSUE NECK CT: IMPRESSION: 1. Nonspecific inflammation involving the anterolateral right neck soft tissues. Infectious cellulitis cannot be excluded. No abscess identified. 2. Areas of consolidation involving the visualized right lung suspicious for multilobar pneumonia. Consolidation noted in the perihilar left lung which is stable compared to prior examinations and may represent post radiation fibrosis. 3. Atherosclerosis. 4. Paranasal sinus mucosal thickening. Please correlate with clinical data. Dictated by: Yulia Thayer MD, PhD on 03/30/2017 at 14:00 Approved by: Yulia Thayer MD, PhD on 03/30/2017 at 14:47 Lab Results Interpretation Result Diagram: 03/30/17 1245 03/30/17 1245 Test 03/30/17 12:25 03/30/17 12:45 Prothrombin Time 18.4sec (8.1-12.5) Prothromb Time International Ratio 1.70ratio White Blood Count 7.8th/mm3 (3.8-10.1) Red Blood Count 3.72mil/mm3 (3.90-5.20) Hemoglobin 11.9g/dL (12.0-15.6) Hematocrit 36.0% (35.0-46.0) Mean Corpuscular Volume 96.8fL (81-100) Mean Corpuscular Hemoglobin 32.0pg (27.0-35.0) Mean Corpuscular Hemoglobin Concent 33.1% (32.0-37.0) Red Cell Distribution Width 13.6% (12.3-15.4) Platelet Count 239bil/L (150-400) Neutrophils (%) (Auto) 59.7% (40-74) Lymphocytes (%) (Auto) 12.8% (14-46) Monocytes (%) (Auto) 5.2% (4-12) Eosinophils (%) (Auto) 21.9% (0-5) Basophils (%) (Auto) 0.3% (0-3) Sodium Level 138mEq/L (134-144) Potassium Level 4.0mEq/L (3.5-5.2) Chloride Level 99mEq/L (97-108) Carbon Dioxide Level 23mmol/L (18-29) Blood Urea Nitrogen 23mg/dL (8-27) Creatinine 1.15mg/dL (0.57-1.00) Estimat Glomerular Filtration Rate 65mL/min (>59) Glucose Level 144mg/dL (60-99) Calcium Level 9.5mg/dL (8.5-10.1) Magnesium Level 1.7mg/dL (1.6-2.6) Total Bilirubin 0.7mg/dL (0.0-1.2) Aspartate Amino Transf (AST/SGOT) 22U/L (0-50) Alanine Aminotransferase (ALT/SGPT) 14U/L (0-32) Alkaline Phosphatase 60U/L (25-165) Total Protein 6.9g/dL (6.4-8.4) Albumin 3.3g/dL (3.4-5.0) Hold Salomon Top Tube Received (Received) X-Ray Chest Interpretation Chest Xray Interpretation: IMPRESSION: 1. A masslike density in the right upper lobe, which has increased. 2. Stable para-aortic soft tissue adjacent to the aortic arch. 3. Large hiatal hernia. Dictated by: Aria Earl M.D. on 03/30/2017 at 13:44 Approved by: Aria Earl M.D. on 03/30/2017 at 13:50 View: Portable, 1 view Interpretation / Wet Read by: Interpret - Radiologist Re-Eval/Medical Decision Med Decision/Clinical Course 76-year-old female history of atrial fibrillation on Coumadin, CHF, stage IV lung cancer thought to be in remission on PET scan in December presenting with neck swelling. She is also has a history of hiatal hernia and had an endoscopy two weeks ago. She has a solitary kidney due to history of nephrectomy for renal metastasis. CT neck showed inflammatory changes no abscess thought to be infectious per radiology. Right upper lobe pneumonia was also visualized on the CT chest per radiology. She had a right upper lobe mass on x-ray that radiologist thought was a pneumonia. Would like to perform a repeat CT angiogram to rule out PE and to get better visualization of the right upper lobe mass however discussion with radiologist decision made to be done after admission given recent contrast and need for hydration in the setting of her solitary kidney. She also had a history of hemoptysis earlier today. Patient will be admitted for right upper lobe pneumonia, possible developing soft tissue infection of the neck and plans to perform PE/chest imaging later this evening. Given broad-spectrum antibiotics. Covered for aspiration given she reports recent choking. Blood cultures sent. She has no dysphagia, drooling, airway involvement at this time. Admit hospitalist. Source of Hx: Old records Time of Eval: 14:55 Patient Status: Mild relief Re-Evaluation/Progress Note: Discussed CT results and need for further testing. Time of Eval: 15:30 Re-Evaluation/Progress Note: Discussed plan for admit. The patient understands and agrees to the plan for admit. All questions were addressed. Consultation #1: Referral / Consult Name: Jason Rodriguez Consulted With: Hospitalist Call Returned at: 15:59 Script Manager: Agrees with eval, Agrees with plan, Accepts admit Consultation #2: Call Returned at: 15:15 Note: Radiology recommended waiting to CT until patient is admitted. Counseled Regarding: Diagnosis, Lab results, Need for admission Discharge & Departure Primary Impression: Pneumonia Pneumonia type: due to unspecified organism Laterality: unspecified laterality Lung location: unspecified part of lung Qualified Code: J18.9 - Pneumonia, unspecified organism Additional Impressions: Neck swelling Suspected soft tissue infection Disposition: ADMITTED TO HOSPITAL Discharge Condition All VS Reviewed: Yes Condition: Stable Referrals: Bret New MD (PCP) Bessy Attestation Portions of this note were transcribed by Sharmila Barnes. I, Dr. Jada Yu personally performed the history, physical exam and medical decision-making; I reviewed and confirmed the accuracy of the information in the transcribed note. Signed by: Bessy Gaines, 03/30/17 and 1600 copies to: Bret New MD,Emiliano Houston MD March 30, 2017 12:51 Quynh Barnes March 30, 2017 13:17
[2017-03-30 12:59] LABS: BASOPHILS % (AUTO) 0.3 % (0-3); EOSINOPHILS % (AUTO) 21.9 % (0-5); MONOCYTES % (AUTO) 5.2 % (4-12); Mean Corpuscular Volume 96.8 fL (81-100); NEUTROPHILS % (AUTO) 59.7 % (40-74); Platelet Count 239 bil/L (150-400)
[2017-03-30 13:36] LABS: Magnesium 1.7 mg/dL (1.6-2.6)
--- NOTE | 2017-03-30 13:51 | DRSVH ---
PROCEDURE: X-RAY CHEST ONE VIEW, PORTABLE ([id number]) INDICATIONS: History of right upper lobe lung cancer. Patient is status post radiation therapy. She presents with hemoptysis. TECHNIQUE: One view of the chest was acquired. COMPARISON: [facility], [place], PET NECK TO MID THIGH STD, 09/22/2016, 9:44. [facility], CR, XR CHEST 1VW (PORTABLE), 01/28/2017, 2:41. [facility], CT, CT CHEST ABD PEL VIS W CON, 01/19/2017, 12:42. [facility], CR, XR CHEST 1VW (PORTABLE), 02/23/2017, 20:56. FINDINGS: Surgical changes and devices: None. Lungs and pleura: There is a mass-like density in the right upper lobe, which is increased. Stable p quintin-aortic soft tissue adjacent to the aortic arch in the medial left upper lung zone. No pleural eff usions or pneumothorax. Mediastinum: Mediastinal contours appear normal. Heart size is normal. There is a large hiatal her john. Bones and chest wall: No suspicious bony lesions. Overlying soft tissues appear unremarkable. IMPRESSION: 1. A masslike density in the right upper lobe, which has increased. 2. Stable para-aortic soft tissue adjacent to the aortic arch. 3. Large hiatal hernia. Dictated by: Aria Earl M.D. on 03/30/2017 at 13:44 Approved by: Aria Earl M.D. on 03/30/2017 at 13:50
--- NOTE | 2017-03-30 14:48 | DRSVH ---
PROCEDURE: CT NECK SOFT TISSUES WITH CONTRAST ([id number]) INDICATIONS: neck swelling r/o can's angina TECHNIQUE: After the administration of intravenous contrast, 3.0 mm axial sections acquired from the sella to th e aortic arch. Additional oblique axial 3.0 mm sections acquired through the pharynx. 3 mm thick co pramod reformats were generated. For radiation dose reduction, the following was used: automated exp osure control. COMPARISON: [facility], CT, CT CHEST ABD PELVIS W CON, 01/19/2017, 12:42. [facility], CT, CT CHEST ABD PELVIS W CON, 09/13/2016, 10:33. [facility], CR, XR CHEST 1VW (PORTABLE), 03/30/2017, 13:11. FINDINGS: Image quality: Excellent. Lymph nodes: No enlarged lymph nodes seen throughout the neck. Vessels: Visualized vasculature appears patent. Vascular calcifications noted. Neck spaces: The oropharynx, nasopharynx, and pharynx demonstrate no mucosal lesions. The vocal cor ds, false vocal cords, pyriform sinuses, epiglottis, vallecula, and tongue base all appear normal. St randing noted in the right lateral soft tissues of the anterior neck. 1.3 cm soft tissue density mass noted in the anterior right subcutaneous fat of the upper chest which is decreased in size compared to prior CT scan. Glands: The parotid and submandibular glands appear normal. Thyroid gland is within normal limits. Miscellaneous: Visualized brain and orbits appear normal. Airspace opacity is noted in the lungs osmel aterally suspicious for multilobar pneumonia. Superficial soft tissues appear normal. Bones: No suspicious bony lesions. Spine degenerative disc disease and facet arthropathy.Mucosal thi ckening noted in the maxillary sinuses bilaterally, the left sphenoid sinus and the ethmoid air cells bilaterally. mastoids appear unremarkable. IMPRESSION: 1. Nonspecific inflammation involving the anterolateral right neck soft tissues. Infectious celluliti s cannot be excluded. No abscess identified. 2. Areas of consolidation involving the visualized right lung suspicious for multilobar pneumonia. Co nsolidation noted in the perihilar left lung which is stable compared to prior examinations and may r epresent post radiation fibrosis. 3. Atherosclerosis. 4. Paranasal sinus mucosal thickening. Please correlate with clinical data. Dictated by: Yulia Thayer MD, PhD on 03/30/2017 at 14:00 Approved by: Yulia Thayer MD, PhD on 03/30/2017 at 14:47
[2017-03-30] MEDS ORDERED: 0.9% Sodium Chloride 500 ML IV ONE (14:57)
[2017-03-30] MEDS ORDERED: Cefepime Inj 2 GM in IV Premix 1 EACH IV ONE (15:00)
[2017-03-30] MEDS ORDERED: metroNIDAZOLE Inj 500 MG in IV Premix 1 EACH IV ONE (15:00)
[2017-03-30] MEDS ORDERED: levoFLOXacin Inj 750 MG in IV Premix 1 EACH IV ONE (15:00)
[2017-03-30] MEDS ORDERED: Vancomycin Dose per Pharmacist XX ONE (15:00)
[2017-03-30] MEDS ORDERED: Cefepime Inj 2,000 MG in Dextrose 5% 50 ML IV ONE (15:07)
[2017-03-30] MEDS ORDERED: Vancomycin Inj 1,500 MG in 0.9% Sodium Chloride 500 ML IV ONE (15:10)
[2017-03-30] MEDS ORDERED: AMLO5TAB2 PO (15:33)
[2017-03-30] MEDS ORDERED: FUR20 PO (15:33)
[2017-03-30] MEDS ORDERED: FLUT1BLS INHALATION (15:33)
[2017-03-30] MEDS ORDERED: MONT10TA23 PO (15:33)
[2017-03-30 15:53] LABS: INR 1.7 ratio
[2017-03-30] MEDS ORDERED: Alum-Mag Hydrox-Simeth 30 mL Suspension PO PRN ×2 (16:05→18:35)
[2017-03-30] MEDS ORDERED: Ondansetron 2 mg/mL 2 mL Inj IVPUSH PRN (16:05)
[2017-03-30 17:13] LABS: APPEARANCE,URINE CLEAR (CLEAR,HAZY); COLOR,URINE YELLOW (YELLOW); OCCULT BLOOD,URINE NEGATIVE (NEGATIVE); PH,URINE 6.5 (5.0-8.0); UROBILINOGEN,URINE NORMAL (NORMAL)
[2017-03-30] MEDS ORDERED: Polyethylene Glycol (PEG) 17 Gm Powder PO PRN (18:35)
[2017-03-30] MEDS ORDERED: MethylprednisoLONE Sodium Succinate 40 mg/mL Inj IVPUSH ONE (18:45)
--- NOTE | 2017-03-30 18:58 | PCM.HPMED ---
Subjective Date of Service March 30, 2017 Primary Provider: Admitting Physician: Jason Rodriguez Primary Care Physician: Bret New MD Attending Physician: Jason Rodriguez Chief Complaint: neck pain and swelling History of Present Illness: 76 year old female with a history of stage 4 lung cancer (in remission), COPD, CHF, atrial fibrillation (on Coumadin) and hypertension presents with complaint of new onset of neck swelling and pain since this morning. She also reports coughing up some blood this morning. She notes that because of her seasonal allergies and being on Coumadin she gets frequent nose bleeds (mostly post-nasal) and had an episode of nose bleed yesterday. Then this morning after waking up, as she tried to clear her throat she noted red blood in her sputum that soon resolved after she cleared her throat and did not seem to reoccur. She also noted significant swelling of her neck with noted to "lumps" on the right side of her anterior neck / throat area that she describes as "very painful" and tender to touch. She denies fever, vomiting, nausea, hematemesis, melena, or hematochezia. She reports chronic shortness of breath that is at baseline and not any worse than usual. In the ED she was suspected of having possible healthcare associated pneumonia as well and received a dose of IV Vanco, Cefepime, Flagyl, and Levofloxacin. Review of Systems: Constitutional: Negative, except as otherwise mentioned in the history above. Ophthalmologic: Negative, except as otherwise mentioned in the history above. Cardiovascular: Negative, except as otherwise mentioned in the history above. Respiratory: Negative, except as otherwise mentioned in the history above. Gastrointestinal: Negative, except as otherwise mentioned in the history above. Genitourinary: Negative, except as otherwise mentioned in the history above. Musculoskeletal: Negative, except as otherwise mentioned in the history above. Neurological: Negative, except as otherwise mentioned in the history above. Psychiatric: Negative, except as otherwise mentioned in the history above. Hematologic/Lymphatic: Negative, except as otherwise mentioned in the history above. Allergic/Immunologic: Negative, except as otherwise mentioned in the history above. Allergies Coded Allergies: Penicillins (Verified Allergy, Severe, Rash, 02/23/17) Home Medications Erlotinib HCl 100 Mg Tablet (Tarceva) 100 Mg PO DAILY Albuterol Neb Soln 0.63 Mg/3 Ml Vial.Neb 0.63 Mg INHALATION Q4H PRN PRN For Shortness of Breath PRN For Shortness of Breath Albuterol Sulfate 200 Puff/18 Gm Inhaler (Ventolin HFA Inhaler) 1 Puff INH Q4 PRN PRN For Wheezing Warfarin Sodium 4 Mg Tablet 4 Mg PO HS Metoprolol Tartrate 25 Mg Tablet 25 Mg PO BID hold if b/p <105 or HR IS<60 Pravastatin 20 Mg Tablet 20 Mg PO QAM Citalopram 20 Mg Tablet 20 Mg PO QAM Zolpidem 5 Mg Tablet 5 Mg PO HS oxyCODONE-Acetaminophen 5-325 mg 1-2 Tab PO Q4H PRN Furosemide 20 Mg Tab 20 Mg PO QAM Fluticasone/Vilanterol 200 Mcg-25 Mcg/Dose Blst.W.Dev 1 Puff INHALATION DAILY Montelukast 10 Mg Tablet 10 Mg PO DAILY Exam Vital Signs & I/O Vital Sign- Last 8 Hours Date Time Temp Pulse Resp B/P Pulse Ox O2 Delivery O2 Flow Rate FiO2 03/30/17 17:12 61 03/30/17 16:52 36.9 60 20 117/75 96 Room Air 03/30/17 16:02 67 16 154/67 95 Room Air 03/30/17 13:47 67 16 154/67 95 Room Air 03/30/17 12:54 96 Room Air 03/30/17 12:33 36.5 69 16 162/75 95 Room Air Lab & Micro Results Laboratory Tests Test 03/30/17 12:25 03/30/17 12:45 03/30/17 16:11 Prothrombin Time 18.4sec (8.1-12.5) Prothromb Time International Ratio 1.70ratio White Blood Count 7.8th/mm3 (3.8-10.1) Red Blood Count 3.72mil/mm3 (3.90-5.20) Hemoglobin 11.9g/dL (12.0-15.6) Hematocrit 36.0% (35.0-46.0) Mean Corpuscular Volume 96.8fL (81-100) Mean Corpuscular Hemoglobin 32.0pg (27.0-35.0) Mean Corpuscular Hemoglobin Concent 33.1% (32.0-37.0) Red Cell Distribution Width 13.6% (12.3-15.4) Platelet Count 239bil/L (150-400) Neutrophils (%) (Auto) 59.7% (40-74) Lymphocytes (%) (Auto) 12.8% (14-46) Monocytes (%) (Auto) 5.2% (4-12) Eosinophils (%) (Auto) 21.9% (0-5) Basophils (%) (Auto) 0.3% (0-3) Sodium Level 138mEq/L (134-144) Potassium Level 4.0mEq/L (3.5-5.2) Chloride Level 99mEq/L (97-108) Carbon Dioxide Level 23mmol/L (18-29) Blood Urea Nitrogen 23mg/dL (8-27) Creatinine 1.15mg/dL (0.57-1.00) Estimat Glomerular Filtration Rate 65mL/min (>59) Glucose Level 144mg/dL (60-99) Calcium Level 9.5mg/dL (8.5-10.1) Magnesium Level 1.7mg/dL (1.6-2.6) Total Bilirubin 0.7mg/dL (0.0-1.2) Aspartate Amino Transf (AST/SGOT) 22U/L (0-50) Alanine Aminotransferase (ALT/SGPT) 14U/L (0-32) Alkaline Phosphatase 60U/L (25-165) Total Protein 6.9g/dL (6.4-8.4) Albumin 3.3g/dL (3.4-5.0) Procalcitonin 0.06ng/mL (0.00-0.08) Hold Salomon Top Tube Received (Received) Urine Color Yellow (YELLOW) Urine Appearance Clear (CLEAR,HAZY) Urine pH 6.5 (5.0-8.0) Urine Specific [place] 1.005 (1.003-1.035) Urine Protein Negativemg/dL (NEG,TRACE) Urine Glucose (UA) Negativemg/dL (NEGATIVE) Urine Ketones Negativemg/dL (NEGATIVE) Urine Occult Blood Negative (NEGATIVE) Urine Nitrite Negative (NEGATIVE) Urine Bilirubin Negative (NEGATIVE) Urine Urobilinogen Normalmg/dL (NORMAL) Urine Leukocyte Esterase Negative (NEGATIVE) Urine RBC 0-2/hpf (0-2) Urine WBC 0-5/hpf (0-5) Urine Epithelial Cells Few/hpf (NONE-MOD) Urine Crystals None seen (NONE SEEN) Urine Bacteria Few/hpf (NONE-FEW) Urine Hyaline Casts None/lpf (NONE) Urine Granular Casts None seen (NONE SEEN) Urine Waxy Casts None seen (NONE SEEN) Urine Red Blood Cell Casts None seen (NONE SEEN) Urine White Blood Cell Casts None seen (NONE SEEN) Urine Mucus None seen (None Seen) Urine Trichomonas None seen (NONE SEEN) Urine Yeast None (NONE SEEN) Urinalysis Comment None Urine Culture Reflexed Not indicated Microbiology 03/30/17 Blood Culture, Received Pending Result Diagram: 03/30/17 1245 03/30/17 124 PM Stage IV pulmonary adenocarcinoma, 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 Paroxysmal atrial fibrillation, on anticoagulation therapy. Iron deficiency anemia. Asthma/COPD Large hiatal hernia. Chronic kidney disease Chronic diastolic CHF Diabetes mellitus, type II Hyperlipidemia Hypertension PVD Depression Chronic diarrhea Peripheral neuropathy Family History Grandmother with breast cancer Social History Hx Alcohol Use: No Hx Substance Use: No Hx Tobacco Use: Yes Smoking Status: Former Smoker (quit abotu 15 years ago) Exam Vital Signs Vital Sign - Last Date Time Temp Pulse Resp B/P Pulse Ox O2 Delivery O2 Flow Rate FiO2 03/30/17 17:12 61 03/30/17 16:52 36.9 20 117/75 96 Room Air General: Alert, Oriented X3, Cooperative, No Acute Distress Head: Normal Eyes: PERRLA, EOMI, Scleral Anicteric Nose: Mucous Membr Moist/[place] Mouth: Mucous Membranes Dry Neck: Supple, Other (mild erythema of the anteriro aspect of the neck (right more than left) with two small tender nodules noted (one at right and ond midline)) Chest & Lungs: Chest Wall Normal, Clear to auscultation & percussion Cardiovascular: Regular Rate/Rhythm Pulses: NL carotid, radial, femoral, DP, PT Abdomen: Non-tender, Non-distended, Normoactive bowel tones, Soft Extremities: No cyanosis/clubbing/edma bilat Neurological: Grossly Neurologically Intact, Cranial Nerves 2-12 Intact, Normal Speech Lab and Diagnostics Result Diagram: 03/30/17 1245 03/30/17 124 X-Rays, CTs and MRIs Date of Service: 03/30/17 1312 PROCEDURE: CT NECK SOFT TISSUES WITH CONTRAST ([id number]) IMPRESSION: 1. Nonspecific inflammation involving the anterolateral right neck soft tissues. Infectious cellulitis cannot be excluded. No abscess identified. 2. Areas of consolidation involving the visualized right lung suspicious for multilobar pneumonia. Consolidation noted in the perihilar left lung which is stable compared to prior examinations and may represent post radiation fibrosis. 3. Atherosclerosis. 4. Paranasal sinus mucosal thickening. Please correlate with clinical data. Dictated by: Yulia Thayer MD, PhD on 03/30/2017 at 14:00 Approved by: Yulia Thayer MD, PhD on 03/30/2017 at 14:47 Date of Service: 03/30/17 1313 PROCEDURE: X-RAY CHEST ONE VIEW, PORTABLE ([id number]) IMPRESSION: 1. A masslike density in the right upper lobe, which has increased. 2. Stable para-aortic soft tissue adjacent to the aortic arch. 3. Large hiatal hernia. Dictated by: Aria Earl M.D. on 03/30/2017 at 13:44 Approved by: Aria Earl M.D. on 03/30/2017 at 13:50 Assessment & Plan 76 year old female with a history of stage 4 lung cancer (in remission), COPD, CHF, atrial fibrillation (on Coumadin) and hypertension presents with complaint of new onset of neck swelling and pain since the morning of admission. She also reported coughing up some blood on the morning of admission as well. # Acute right anterolateral neck cellulitis, present on admission - CT neck does not show any evidence of underlying abscess but on palpation she seems to have to separate tender nodules - ? if acute underlying or developing pharyngitis or peritonsillar abscess as well - Check U/S of the neck - Will give one dose of IV Solu-Medrol for now - Check rapid Strep test - Followup pending blood cultures - Will continue with IV Vancomycin and Cefepime for now (note patient is allergic to PCN but tolerated Cefepime in ED) # Suspected acute pneumonia, present on admission - Despite the chest x-ray and CT findings clinically I'm not convinced that she has pneumonia and wonder if findings are from chronic changes due to her underlying known cancer - Check procalcitonin - Already received fairly broad Abx in ED which I will not continue except as noted above for the suspected cellulitis - Will consider ID consult in AM # Reported hemoptysis on admission. Not having any right now. 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 Reportedly in remission. - Will discuss with her oncologist (Dr. Gonzalez) in am # Paroxysmal atrial fibrillation - Currently in sinus rhythm - Continue home dose Metoprolol # Chronic anticoagulation with Coumadin - INR subtherapeutic on admission - Hold Coumadin for now until active bleeding ruled out # Clear cell carcinoma of the left kidney, T1b N0, status post left radical nephrectomy. # Chronic Asthma/COPD. Currently appears stable - Continue with home dose inhalers and Albuterol as needed # Large hiatal hernia. - Being worked up by Dr. Zhang as outpatient with reported tentative plan for surgical correction next week. # Chronic kidney disease, present on admission. Stable - Avoid nephrotoxic medications - Followup # Chronic diastolic CHF. Currently stable and compensated - Resume home dose Lasix when hemodynamically more stable and infection under better control # Diabetes mellitus, type II. - Seems to be diet controlled as outpatient - ISS while inpatient - Check HgA1C # Hyperlipidemia, presumed stable. - Continue with home dose statin # Chronic Hypertension. stable - Continue with home meds Expected length of hospital stay is greater than 2 midnights and likely 2-4 days VTE Prophylaxis: Sub-Q Heparin (Unfractionated) Resuscitation Status: DNR/DNI:Do Not Resuscitate/Intubate (discussed and verified with patient. She does not mind being intubated if her current neck swelling were to worsen and was thought to be reversible.) Time spent 65 min Jason Rodriguez March 30, 2017 18:58
[2017-03-30] MEDS ORDERED: Albuterol 1.25 mg/3 mL Inhalation Solution NEB PRN (19:05)
--- NOTE | 2017-03-30 19:34 | PCM.CONPHA ---
Subjective neck pain and swelling Reason for Pharmacy Consult: Vancomycin Dosing Objective Vital Signs Date Time Temp Pulse Resp B/P Pulse Ox O2 Delivery O2 Flow Rate FiO2 03/30/17 17:12 61 03/30/17 16:52 36.9 60 20 117/75 96 Room Air 03/30/17 16:02 67 16 154/67 95 Room Air 03/30/17 13:47 67 16 154/67 95 Room Air 03/30/17 12:54 96 Room Air 03/30/17 12:33 36.5 69 16 162/75 95 Room Air Weight (Kilograms): 77.800 Height (Feet): 5 Height (Inches): 6.00 Test 03/30/17 12:25 03/30/17 12:45 03/30/17 16:11 Prothrombin Time 18.4sec (8.1-12.5) Prothromb Time International Ratio 1.70ratio White Blood Count 7.8th/mm3 (3.8-10.1) Red Blood Count 3.72mil/mm3 (3.90-5.20) Hemoglobin 11.9g/dL (12.0-15.6) Hematocrit 36.0% (35.0-46.0) Mean Corpuscular Volume 96.8fL (81-100) Mean Corpuscular Hemoglobin 32.0pg (27.0-35.0) Mean Corpuscular Hemoglobin Concent 33.1% (32.0-37.0) Red Cell Distribution Width 13.6% (12.3-15.4) Platelet Count 239bil/L (150-400) Neutrophils (%) (Auto) 59.7% (40-74) Lymphocytes (%) (Auto) 12.8% (14-46) Monocytes (%) (Auto) 5.2% (4-12) Eosinophils (%) (Auto) 21.9% (0-5) Basophils (%) (Auto) 0.3% (0-3) Sodium Level 138mEq/L (134-144) Potassium Level 4.0mEq/L (3.5-5.2) Chloride Level 99mEq/L (97-108) Carbon Dioxide Level 23mmol/L (18-29) Blood Urea Nitrogen 23mg/dL (8-27) Creatinine 1.15mg/dL (0.57-1.00) Estimat Glomerular Filtration Rate 65mL/min (>59) Glucose Level 144mg/dL (60-99) Calcium Level 9.5mg/dL (8.5-10.1) Magnesium Level 1.7mg/dL (1.6-2.6) Total Bilirubin 0.7mg/dL (0.0-1.2) Aspartate Amino Transf (AST/SGOT) 22U/L (0-50) Alanine Aminotransferase (ALT/SGPT) 14U/L (0-32) Alkaline Phosphatase 60U/L (25-165) Total Protein 6.9g/dL (6.4-8.4) Albumin 3.3g/dL (3.4-5.0) Procalcitonin 0.06ng/mL (0.00-0.08) Hold Salomon Top Tube Received (Received) Urine Color Yellow (YELLOW) Urine Appearance Clear (CLEAR,HAZY) Urine pH 6.5 (5.0-8.0) Urine Specific [place] 1.005 (1.003-1.035) Urine Protein Negativemg/dL (NEG,TRACE) Urine Glucose (UA) Negativemg/dL (NEGATIVE) Urine Ketones Negativemg/dL (NEGATIVE) Urine Occult Blood Negative (NEGATIVE) Urine Nitrite Negative (NEGATIVE) Urine Bilirubin Negative (NEGATIVE) Urine Urobilinogen Normalmg/dL (NORMAL) Urine Leukocyte Esterase Negative (NEGATIVE) Urine RBC 0-2/hpf (0-2) Urine WBC 0-5/hpf (0-5) Urine Epithelial Cells Few/hpf (NONE-MOD) Urine Crystals None seen (NONE SEEN) Urine Bacteria Few/hpf (NONE-FEW) Urine Hyaline Casts None/lpf (NONE) Urine Granular Casts None seen (NONE SEEN) Urine Waxy Casts None seen (NONE SEEN) Urine Red Blood Cell Casts None seen (NONE SEEN) Urine White Blood Cell Casts None seen (NONE SEEN) Urine Mucus None seen (None Seen) Urine Trichomonas None seen (NONE SEEN) Urine Yeast None (NONE SEEN) Urinalysis Comment None Urine Culture Reflexed Not indicated Assessment/Plan Assessment/Plan VANCO DOSING INITIATION 76y/o F with HCAP, neck cellulitis SCr 1.15, CrCl 48 Loading dose 20mg/kg = 1500mg given @ 1743 Plan: * vanco 10mg/kg q12h starting 03/31@0600 * dosing per patient age over 70 * trough ordered 30 min. prior to scheduled 4th dose to allow time for approx. steady-state level (trough due 04/01 0530) * pharmacy to continue to monitor SCr and vanco levels N[place] Pharm.D March 30, 2017 19:34
[2017-03-30] MEDS: oxyCODONE-Acetamin 5-325 mg Tablet PO PRN (19:58)
[2017-03-30] MEDS ORDERED: Albuterol 2.5 mg/3 mL Inhalation Solution NEB PRN (20:00)
[2017-03-30] MEDS: Insulin Human REGular 300 Unit/3 mL Inj SUBQ SCH (21:46)
[2017-03-30] MEDS: Heparin 5,000 Unit/mL Inj SUBQ SCH (23:45)
[2017-03-31] VITALS (7 sets, daily range): BP systolic 91–122; BP diastolic 54–76; PULSE 46–68; RESP 18; O2SAT 93–97
[2017-03-31] MEDS: oxyCODONE-Acetamin 5-325 mg Tablet PO PRN ×4 (01:13→22:10)
[2017-03-31] MEDS: Cefepime Inj 2,000 MG in Dextrose 5% Minibag Plus 50 ML IV SCH ×2 (04:12→16:15)
[2017-03-31] MEDS: Ondansetron 2 mg/mL 2 mL Inj IVPUSH PRN ×3 (04:23→16:05)
[2017-03-31 06:31] LABS: BASOPHILS % (AUTO) 0.2 % (0-3); EOSINOPHILS % (AUTO) 0.2 % (0-5); Mean Corpuscular Hemoglobin 32.2 pg (27.0-35.0); Mean Corpuscular Volume 93.9 fL (81-100); NEUTROPHILS % (AUTO) 86.8 % (40-74); Platelet Count 230 bil/L (150-400)
[2017-03-31 06:51] LABS: INR 1.86 ratio
[2017-03-31] MEDS: Heparin 5,000 Unit/mL Inj SUBQ SCH (08:10)
[2017-03-31] MEDS: Insulin Human REGular 300 Unit/3 mL Inj SUBQ SCH ×4 (08:11→21:49)
[2017-03-31] MEDS: ERLOTINIB 100 MG PO SCH (08:12)
[2017-03-31] MEDS: Vancomycin Dose per Pharmacist XX SCH (08:30)
[2017-03-31] MEDS: Vancomycin Inj 750 MG in 0.9% Sodium Chloride 250 ML IV SCH ×2 (10:56→22:08)
--- NOTE | 2017-03-31 14:24 | DRSVH ---
PROCEDURE: US SOFT TISSUE OF HEAD OR NECK SONOGRAM INDICATIONS: right neck/throat pain and swelling TECHNIQUE: Real-time scanning was performed of the neck region of interest, with image documentation. COMPARISON: [facility], CT, CT NECK SOFT TISSUE W CON, 03/30/2017, 13:50. FINDINGS: Limited exam demonstrating normal appearance of the right and left submandibular gland. Wi thin the midline of the neck anteriorly just inferior to the mandibular symphysis, there are 3 small hypoechoic soft tissue foci present largest measuring 2.4 x 0.8 cm. No additional abnormalities are seen. IMPRESSION: 1. Normal appearance the submandibular glands bilaterally. 2. 3 small hypoechoic soft tissue foci present within the anterior neck. Findings are nonspecific an d could be related to either inflammatory/infectious or neoplastic process. No drainable fluid colle ction is seen. Dr. Yonathan Carrillo given results at 1425 hrs. 03/31/2017. Dictated by: Anjel Frank RRA Interpreted: Yulia Thayer MD on 03/31/2017 at 14:18 Transcribed by: CHUCK on 03/31/2017 at 14:23 Approved by: Yulia Thayer MD, PhD on 03/31/2017 at 15:19
--- NOTE | 2017-03-31 15:19 | CONS ---
[address] [address] CONSULTATION REPORT PATIENT: HEATHER GIBBS I : 1940 MR#: [id number] ADMIT: 03/30/2017 JOB ID: [id number] DATE OF SERVICE: 03/31/2017 INFECTIOUS DISEASE CONSULTATION: I thank Dr. Rodriguez for this consult. REASON FOR CONSULT: Possible neck cellulitis. HISTORY OF THE PRESENT ILLNESS: The patient is a complex 76-year-old woman with multiple medical problems, including lung cancer, which is currently stable on Tarceva, as well as COPD, CHF, chronic renal insufficiency, diabetes and severe peripheral vascular disease. She also has chronic diarrhea she attributes to the Tarceva. She was in her usual state though of fairly good and compensated health until March 29 when she had a nose bleed. This is not unusual for her. When she woke up on the though, she noticed he had some red blood in her normal COPD sputum that resolved fairly quickly. She also noted that the entire anterior aspect of her neck was red, warm and perhaps slightly tender with some bumps on the right side of the neck. She also noted that she had developed an acute sore throat. These some strange symptoms, however, were not associated with any fever, chills, sweats, difficulty breathing beyond her normal COPD trouble breathing or GI symptoms. Because of these symptoms, she came to the emergency department where a series of imaging studies were done which suggested possible pneumonia and she was started on broad-spectrum antibiotics including vanc, cefepime, Flagyl and levo for possible healthcare-associated pneumonia. Subsequently Dr. Rodriguez wisely reviewed the entire case and decided that it was unlikely she had a significant healthcare-associated pneumonia and the pulmonary infiltrates seen likely represented either radiation fibrosis or malignancy rather than infection. He reduced her antibiotics to vanc and cefepime for what appeared to be an unusual cellulitis of the anterior neck. Overnight since admission, the patient has noticed the almost complete resolution of the entire anterior neck process. She reports that this anterior neck redness and warmth resolved in hours which is the same way it presented the day before. She has not had this before exactly but has been troubled by a great deal of allergic phenomena in the past. She also notes that she recently started the new drug, Breo, for her COPD and she wondered if this could have precipitated any of this anterior neck inflammation and redness. When I see the patient this afternoon, she basically states that she feels well. She denies any fevers, chills, or significant headache. She does note that she had headaches for a couple days preceding yesterday's events but is better. She denies any sore throat at this point, and no anterior neck tenderness. The swellings she had noted in her right anterior neck seem to be rapidly resolving. She continues to have an episodic cough, but there is no longer any hemoptysis. PAST MEDICAL HISTORY: 1. Lung cancer. Stage IV on chronic Tarceva therapy. 2. COPD. 3. Organic heart disease: a. CHF. b. AFib. 4. Renal cancer status post nephrectomy. 5. Chronic renal insufficiency. 6. Diabetes mellitus. 7. Hyperlipidemia. 8. Hypertension. 9. Peripheral vascular disease with lower extremity stents. 10. Chronic diarrhea, perhaps due to Tarceva. SOCIAL HISTORY: The patient lives in [place]. She was a significant cigarette smoker until about 10-15 years ago when she quit. She does not drink alcohol. She has never lived outside the [facility]. FAMILY HISTORY: Including first and second degree relatives negative for TB. REVIEW OF SYSTEMS: The patient has had headaches the last several days, though they have dissipated today. No problem with her ears. She notes no problems with her eyes and no intraoral lesions though there was a hint of a sore throat yesterday which is now gone. She has had no neck stiffness. The anterior neck was red and warm yesterday morning and it is all resolved by this morning, and that is noted in the history of the present illness. The swollen lumps in her right anterior neck also seem to be rapidly receding. Her cough is about at baseline. Yesterday she had some bloody sputum and that was very unusual for her and that also seems better at this point. She notes she has been coughing and sneezing a bit more lately because of the spring season. No chest pain. She does have a large hiatal hernia and there are plans underway to try and get that repaired with the tentative surgery date for April [address] Zhang. She has had some anorexia but no nausea or vomiting. She has chronic diarrhea but it has not changed lately. No dysuria, urgency or frequency. She has had vascular surgery to both lower extremities but no rest pain and no severe pain in either lower extremity at this point. She notes no skin rash. The remainder of the review of systems is negative. PHYSICAL EXAMINATION: Reveals an afebrile woman. Temperature 36.6, pulse 59, respiratory rate 18, blood pressure 117/70. She is saturating 93% on room air and in no acute distress. She is alert, oriented, able to give a good history. She is currently in the room with her sister who also helps with the history. There is no evidence for head trauma. The eyes are normal. No conjunctivitis. No scleral icterus and no conjunctival pallor. Nose is normal. Oral cavity: She has dentures on the top and her lower teeth are her own and they look pretty good without evidence of caries or gingivitis. There is no evidence of pharyngitis. The patient's neck is supple. On the right side, there are numerous lymph nodes in the anterior cervical chain about 1 cm but they do not seem tender nor do they seem massively enlarged. The neck is supple. There are no erythematous areas to the anterior neck nor is the neck warm at all to touch. The anterior upper chest is likewise benign. There is a scar in the right upper chest were the used to be a port and it has now been removed. The lungs are notable for scattered wheezes and decreased air flow bilaterally. Cardiac tones are regular rate and rhythm today without significant murmur. The patient's abdomen is soft and nontender. I do not appreciate any hepatosplenomegaly or ascites. No focal tenderness. No suprapubic tenderness. No Kerr catheter is present. The extremities are notable for decreased pulses in the feet bilaterally though they are palpable but barely so. Capillary refill seems reasonable and I see no evidence for skin breakdown or infection in the lower extremities. No evidence of synovitis. No evidence of skin rash anywhere and neurologically the patient is quite intact with good strength in her extremities. LABORATORIES: Include two white counts, both around 7000, one yesterday normal differential, today's has 87% segs. Yesterday's has 22% eos interestingly and today 0. Creatinine is 1.13. Two procalcitonins 0.06. INR 1.86 and she is anticoagulated. Urinalysis without white cells. Micro studies include two negative blood cultures. Going back a bit further her cultures have been largely negative except for some E. coli in urine cultures. IMAGING: In this admission includes a CT of the neck that was done yesterday. It shows a nonspecific inflammation of the anterior lateral right neck. The possibility of cellulitis is considered. There are also areas of the right lung which look like possible multi lobar pneumonia. I reviewed this on the scan myself. This could also represent a malignancy or some other process besides a pneumonia in this nontoxic patient. Paranasal sinus thickening is also noted. The chest x-ray done yesterday was also reviewed. It shows a masslike density in the right upper lobe which is increasing in size and a stable periaortic density adjacent to the aortic arch. A very large hiatal hernia is also seen. An ultrasound of the neck was done but there is no reading and I am not competent to interpret the images. I called Radiology and I am waiting for a call back about whatever interpretation there may be. IMPRESSION: I see little to no evidence for infection at this point. This patient is afebrile, has basically normal white blood count and two procalcitonins less than 0.1. Additionally her neck is no longer tender nor warm and she tells me that the tenderness and erythema involving the anterior neck came up over a period of hours and then resolved at about the same speed. This all seems inconsistent with an infection, both in terms of its speed of onset and speed of resolution. RECOMMENDATIONS: 1. MRSA screen of the nares has been ordered. If this is negative, I would stop the vancomycin. 2. I might continue with the cefepime through the night as a sole antibiotic, and if there is no additional evidence of infection and her neck remains stable, I would simply discontinue all antibiotics. 3. I will be out of town the next four days, but I can be reached by telephone or e-mail about this or any other patient. Given the benign nature of this patient's appearance and presentation, I am going to go ahead and sign off but do not hesitate to call me about this or any other patient if there are questions.
--- NOTE | 2017-03-31 15:37 | PCM.PNMED ---
Subjective Date of Service March 31, 2017 Subjective says her neck feels moderately better than yesterday. denies any new issues/ complaints. Exam Vital Signs Vital Sign - Last Date Time Temp Pulse Resp B/P Pulse Ox O2 Delivery O2 Flow Rate FiO2 03/31/17 14:22 36.5 61 18 91/54 93 Room Air 03/31/17 04:27 2.00 Intake and Output 03/30/17 03/30/17 03/31/17 Cumulative From/Thru 15:00 23:00 07:00 03/30/17 12:33 - 03/31/17 06:23 Intake Total 1139 ml 200 ml 1339 ml Output Total 100 ml 300 ml 400 ml Balance 1039 ml -100 ml 939 ml Intake Oral 100 ml 200 ml 300 ml IV Total 1039 ml 1039 ml Output Urine Total 100 ml 300 ml 400 ml # Bowel Movements 1 1 Exam General: Alert, Oriented X3, Cooperative, No Acute Distress Head: Normal Eyes: PERRLA, EOMI, Scleral Anicteric Nose: Mucous Membr Moist/[place] Mouth: Mucous Membranes Dry Neck: Supple, Other: mild erythema of the anterior aspect of the neck (right more than left) with two small tender nodules noted (one at right and on midline ) Chest & Lungs: Chest Wall Normal, Clear to auscultation & percussion Cardiovascular: Regular Rate/Rhythm Pulses: NL carotid, radial, femoral, DP, PT Abdomen: Non-tender, Non-distended, Normoactive bowel tones, Soft Extremities: No cyanosis/clubbing/edema bilat Neurological: Grossly Neurologically Intact, Cranial Nerves 2-12 Intact, Normal Speech IVs and Medications Medications Reviewed: Medications were reviewed in detail Lab and Diagnostics Result Diagram: 03/31/17 0620 03/31/17 0620 X-Rays, CTs and MRIs Date of Service: 03/30/17 1312 PROCEDURE: CT NECK SOFT TISSUES WITH CONTRAST ([id number]) IMPRESSION: 1. Nonspecific inflammation involving the anterolateral right neck soft tissues. Infectious cellulitis cannot be excluded. No abscess identified. 2. Areas of consolidation involving the visualized right lung suspicious for multilobar pneumonia. Consolidation noted in the perihilar left lung which is stable compared to prior examinations and may represent post radiation fibrosis. 3. Atherosclerosis. 4. Paranasal sinus mucosal thickening. Please correlate with clinical data. Dictated by: Yulia Thayer MD, PhD on 03/30/2017 at 14:00 Approved by: Yulia Thayer MD, PhD on 03/30/2017 at 14:47 Date of Service: 03/30/17 1313 PROCEDURE: X-RAY CHEST ONE VIEW, PORTABLE ([id number]) IMPRESSION: 1. A masslike density in the right upper lobe, which has increased. 2. Stable para-aortic soft tissue adjacent to the aortic arch. 3. Large hiatal hernia. Dictated by: Aria Earl M.D. on 03/30/2017 at 13:44 Approved by: Aria Earl M.D. on 03/30/2017 at 13:50 Assessment & Plan 76 year old female with a history of stage 4 lung cancer (in remission), COPD, CHF, atrial fibrillation (on Coumadin) and hypertension presents with complaint of new onset of neck swelling and pain since the morning of admission. She also reported coughing up some blood on the morning of admission as well. # Acute right anterolateral neck cellulitis, present on admission - CT neck does not show any evidence of underlying abscess but on palpation she seems to have to separate tender nodules - U/S showing: "3 small hypoechoic soft tissue foci present within the anterior neck. Findings are nonspecific and could be related to either inflammatory/ infectious or neoplastic process. No drainable fluid collection is seen." - Received one dose of IV Solu-Medrol on 03/30 - Followup pending cultures - Will continue with IV Vancomycin and Cefepime for now - ID consulted. Will followup with recs # Suspected acute pneumonia, present on admission - Despite the chest x-ray and CT findings clinically I'm not convinced that she has pneumonia and wonder if findings are from chronic changes due to her underlying known cancer - Already received fairly broad Abx in ED which I will not continue except as noted above for the suspected cellulitis - ID consult and Abx as noted above # Reported hemoptysis on admission. Not having any right now. 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 Reportedly in remission. - Will discuss with her oncologist (Dr. Gonzalez) today. awaiting call back # Paroxysmal atrial fibrillation - Currently in sinus rhythm - Continue home dose Metoprolol # Chronic anticoagulation with Coumadin - INR subtherapeutic on admission - Resume Coumadin (dose per pharmacy) # Clear cell carcinoma of the left kidney, T1b N0, status post left radical nephrectomy. # Chronic Asthma/COPD. Currently appears stable - Continue with home dose inhalers and Albuterol as needed # Large hiatal hernia. - Being worked up by Dr. Zhang as outpatient with reported tentative plan for surgical correction next week. # Chronic kidney disease, present on admission. Stable - Avoid nephrotoxic medications - Followup # Chronic diastolic CHF. Currently stable and compensated - Resume home dose Lasix when hemodynamically more stable and infection under better control # Diabetes mellitus, type II. - Seems to be diet controlled as outpatient - ISS while inpatient - Check HgA1C # Hyperlipidemia, presumed stable. - Continue with home dose statin # Chronic Hypertension. stable - Continue with home meds Dispo: 1-2 days VTE Prophylaxis: Sub-Q Heparin (Unfractionated) Resuscitation Status: DNR/DNI:Do Not Resuscitate/Intubate (discussed and verified with patient. She does not mind being intubated if her current neck swelling were to worsen and was thought to be reversible.) Jason Rodriguez March 31, 2017 15:37
--- NOTE | 2017-03-31 16:11 | PCM.CONPHA ---
Subjective neck pain and swelling Reason for Pharmacy Consult: Anticoagulation Management Assessment/Plan Assessment/Plan Warfarin Management by Pharmacy Indication: Afib Home Dose: 4 mg QHS INR Goal: 2-3 Duration: Unknown INR: 1.86 Assessment/Plan -76 year old female with a history of stage 4 lung cancer (in remission), COPD, CHF, atrial fibrillation (on Coumadin) and hypertension presents with complaint of new onset of neck swelling and pain with reports of coughing up blood. -Subtherapeutic INR at admit. Dose held yesterday to rule out bleed which has resolved. -Will continue with home dose of warfarin 4 mg this evening. -Pharmacy to monitor INR/CBC/signs of bleeding while inpatient. Thanks, Robert Gómez Pharm.D. Robert Gómez March 31, 2017 16:11
[2017-03-31] MEDS: predniSONE 20 mg Tablet PO SCH (18:25)
[2017-04-01 00:37] VITALS: BP 100/60; PULSE 52; RESP 18; O2SAT 93
[2017-04-01] MEDS: Cefepime Inj 2,000 MG in Dextrose 5% Minibag Plus 50 ML IV SCH (03:51)
[2017-04-01] MEDS: ERLOTINIB 100 MG PO SCH (05:49)
[2017-04-01 05:54] VITALS: BP 97/38; PULSE 50; RESP 18; O2SAT 93
[2017-04-01 06:01] VITALS: PULSE 51
[2017-04-01] MEDS: Insulin Human REGular 300 Unit/3 mL Inj SUBQ SCH ×2 (07:30→11:30)
[2017-04-01 08:00] VITALS: BP 125/60; PULSE 48; PULSE 55; RESP 14; O2SAT 93
[2017-04-01] MEDS ORDERED: Vancomycin Serum Trough XX ONE (08:00)
[2017-04-01 08:08] LABS: Mean Corpuscular Volume 93.9 fL (81-100)
[2017-04-01 08:23] LABS: INR 2.34 ratio
[2017-04-01] MEDS: Vancomycin Dose per Pharmacist XX SCH (08:30)
[2017-04-01] MEDS: Vancomycin Inj 750 MG in 0.9% Sodium Chloride 250 ML IV SCH (08:30)
[2017-04-01] MEDS: predniSONE 20 mg Tablet PO SCH (09:33)
[2017-04-01] MEDS ORDERED: CLIN-78 PO (10:23)
[2017-04-01] MEDS ORDERED: PRE20 PO (10:23)
--- NOTE | 2017-04-01 10:30 | PCM.DIMED ---
Discharge Instructions Date of Service April 01, 2017 Dates of Hospitalization March 30, 2017 at 16:06 Discharge Diagnosis Discharge Diagnosis # Acute right anterolateral neck swelling and erythema suspicious for acute cellulitis, present on admission - MRSA screen negative # Suspected acute pneumonia, present on admission. Clinically ruled out. # Chronic Asthma/COPD. Possible mild acute exacerbation not present on admission. # Reported hemoptysis prior to admission. 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 Reportedly in remission. # Paroxysmal atrial fibrillation. Stable. # Clear cell carcinoma of the left kidney, T1b N0, status post left radical nephrectomy. # Large hiatal hernia. # Chronic kidney disease, present on admission. Stable # Chronic diastolic CHF. Currently stable and compensated # Diabetes mellitus, type II. - HgA1C 6.2 # Hyperlipidemia, presumed stable. # Chronic Hypertension. stable Diet Discharge Diet: Low fat, Low Sodium, Heart Healthy, Diabetic Activity Discharge Activity: No restrictions Call your provider Call your provider for: Fever or Chills, Shortness of breath, Bleeding, Chest pain, Vomitting, Excessive diarrhea Patient Instructions Patient Instructions Seek immediate medical attention if any new or worsening signs or symptoms occur. Follow-up plan 1. Followup with Dr. Gonzalez next week (04/07/17) as previously scheduled. Follow-up Provider: Yudith Gonzalez MD, [place] April 01, 2017 10:30
[2017-04-01 12:26] VITALS: BP 166/73; PULSE 62; O2SAT 91
--- NOTE | 2017-04-01 14:18 | PCM.DC.MED ---
Discharge Summary Date of Service April 01, 2017 Dates of Hospitalization Date of Hospital Admission March 30, 2017 at 16:06 Date of Discharge: April 01, 2017 Providers: Admitting Physician: Jason Perez Primary Care Physician: Bret New MD Attending Physician: Jason Perez Diagnosis at Time of Discharge Diagnosis at Time of Discharge # Acute right anterolateral neck swelling and erythema suspicious for acute cellulitis, present on admission - MRSA screen negative # Suspected acute pneumonia, present on admission. Clinically ruled out. # Chronic Asthma/COPD. Possible mild acute exacerbation not present on admission. # Reported hemoptysis prior to admission. 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 Reportedly in remission. # Paroxysmal atrial fibrillation. Stable. # Clear cell carcinoma of the left kidney, T1b N0, status post left radical nephrectomy. # Large hiatal hernia. # Chronic kidney disease, present on admission. Stable # Chronic diastolic CHF. Currently stable and compensated # Diabetes mellitus, type II. - HgA1C 6.2 # Hyperlipidemia, presumed stable. # Chronic Hypertension. stable Consultations 1. ID Procedures XRay, CTs & MRIs Date of Service: 03/30/17 1312 PROCEDURE: CT NECK SOFT TISSUES WITH CONTRAST ([id number]) IMPRESSION: 1. Nonspecific inflammation involving the anterolateral right neck soft tissues. Infectious cellulitis cannot be excluded. No abscess identified. 2. Areas of consolidation involving the visualized right lung suspicious for multilobar pneumonia. Consolidation noted in the perihilar left lung which is stable compared to prior examinations and may represent post radiation fibrosis. 3. Atherosclerosis. 4. Paranasal sinus mucosal thickening. Please correlate with clinical data. Dictated by: Yulia Thayer MD, PhD on 03/30/2017 at 14:00 Approved by: Yulia Thayer MD, PhD on 03/30/2017 at 14:47 Date of Service: 03/30/17 1313 PROCEDURE: X-RAY CHEST ONE VIEW, PORTABLE ([id number]) IMPRESSION: 1. A masslike density in the right upper lobe, which has increased. 2. Stable para-aortic soft tissue adjacent to the aortic arch. 3. Large hiatal hernia. Dictated by: Aria Earl M.D. on 03/30/2017 at 13:44 Approved by: Aria Earl M.D. on 03/30/2017 at 13:50 Other Diagnostics Date of Service: 03/30/17 848 PROCEDURE: US SOFT TISSUE OF HEAD OR NECK SONOGRAM nt largest measuring 2.4 x 0.8 cm. No additional abnormalities are seen. IMPRESSION: 1. Normal appearance the submandibular glands bilaterally. 2. 3 small hypoechoic soft tissue foci present within the anterior neck. Findings are nonspecific and could be related to either inflammatory/infectious or neoplastic process. No drainable fluid collection is seen. Dictated by: Anjel Frank RRA Interpreted: Yulia Thayer MD on 03/31/2017 at 14:18 Transcribed by: CHUCK on 03/31/2017 at 14:23 Approved by: Yulia Thayer MD, PhD on 03/31/2017 at 15:19 Brief History 76 year old female with a history of stage 4 lung cancer (in remission), COPD, CHF, atrial fibrillation (on Coumadin) and hypertension presents with complaint of new onset of neck swelling and pain since this morning. She also reports coughing up some blood this morning. She notes that because of her seasonal allergies and being on Coumadin she gets frequent nose bleeds (mostly post-nasal) and had an episode of nose bleed yesterday. Then this morning after waking up, as she tried to clear her throat she noted red blood in her sputum that soon resolved after she cleared her throat and did not seem to reoccur. She also noted significant swelling of her neck with noted to "lumps" on the right side of her anterior neck / throat area that she describes as "very painful" and tender to touch. She denies fever, vomiting, nausea, hematemesis, melena, or hematochezia. She reports chronic shortness of breath that is at baseline and not any worse than usual. In the ED she was suspected of having possible healthcare associated pneumonia as well and received a dose of IV Vanco, Cefepime, Flagyl, and Levofloxacin. Hospital Course # Suspected acute right anterolateral neck cellulitis, present on admission, significantly improved by day of discharge - CT neck does not show any evidence of underlying abscess but on palpation she seems to have to separate tender nodules - U/S showing: "3 small hypoechoic soft tissue foci present within the anterior neck. Findings are nonspecific and could be related to either inflammatory/ infectious or neoplastic process. No drainable fluid collection is seen." - Received one dose of IV Solu-Medrol on 03/30 and then started on PO prednisone 40 mg daily on 03/31 - ID consulted and have low suspicion for acute infectious process - Also discussed with her oncologist (Dr. Gonzalez) on 03/31 - Will d/c home with 4 more days of PO prednisone and PO Abx with recommendation for close followup with PCP and oncology # Suspected acute pneumonia, present on admission - Despite the chest x-ray and CT findings clinically I'm not convinced that she has pneumonia and wonder if findings are from chronic changes due to her underlying known cancer - Already received fairly broad Abx in ED which I will not continue except as noted above for the suspected cellulitis - ID consult and Abx as noted above # Reported hemoptysis on admission. Not having any right now. 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 Reportedly in remission. - Followup with Dr. Gonzalez already scheduled for this coming week # Paroxysmal atrial fibrillation - Currently in sinus rhythm - Continue home dose Metoprolol # Chronic anticoagulation with Coumadin - INR subtherapeutic on admission but therapeutic by day of discharge # Clear cell carcinoma of the left kidney, T1b N0, status post left radical nephrectomy. # Chronic Asthma/COPD. Possible acute mild exacerbation. not present on admission. - On exam has mild expiratory wheezing bilaterally - Continue with home dose inhalers and Albuterol as needed - Prednisone as noted above # Large hiatal hernia. - Being worked up by Dr. Zhang as outpatient with reported tentative plan for surgical correction next week. # Chronic kidney disease, present on admission. Stable - Avoid nephrotoxic medications - Followup # Chronic diastolic CHF. Currently stable and compensated - Resume home dose Lasix on discharge # Diabetes mellitus, type II. - Seems to be diet controlled as outpatient - ISS while inpatient - Check HgA1C # Hyperlipidemia, presumed stable. - Continue with home dose statin # Chronic Hypertension. stable - Continue with home meds Exam Vital Signs (Last) Date Time Temp Pulse Resp B/P Pulse Ox O2 Delivery O2 Flow Rate FiO2 04/01/17 12:26 36.8 62 166/73 91 04/01/17 08:00 14 Room Air 04/01/17 05:54 1.00 Exam General: Alert, Oriented X3, Cooperative, No Acute Distress Head: Normal Eyes: PERRLA, EOMI, Scleral Anicteric Nose: Mucous Membr Moist/[place] Mouth: Mucous Membranes Dry Neck: Supple, Other: mild erythema of the anterior aspect of the neck with swelling almost completely resolved. Chest & Lungs: Chest Wall Normal, Mild bilateral expiratory wheezing Cardiovascular: Regular Rate/Rhythm Pulses: NL carotid, radial, femoral, DP, PT Abdomen: Non-tender, Non-distended, Normoactive bowel tones, Soft Extremities: No cyanosis/clubbing/edema bilat Neurological: Grossly Neurologically Intact, Cranial Nerves 2-12 Intact, Normal Speech Test 03/30/17 12:45 03/30/17 16:11 03/31/17 06:20 04/01/17 08:00 Hemoglobin A1c 6.2% (4.8-5.6) Magnesium Level 1.7mg/dL (1.6-2.6) Total Bilirubin 0.7mg/dL (0.0-1.2) Aspartate Amino Transf (AST/SGOT) 22U/L (0-50) Alanine Aminotransferase (ALT/SGPT) 14U/L (0-32) Alkaline Phosphatase 60U/L (25-165) Total Protein 6.9g/dL (6.4-8.4) Albumin 3.3g/dL (3.4-5.0) Hold Salomon Top Tube Received (Received) Urine Color Yellow (YELLOW) Urine Appearance Clear (CLEAR,HAZY) Urine pH 6.5 (5.0-8.0) Urine Specific Fellow[place] 1.005 (1.003-1.035) Urine Protein Negativemg/dL (NEG,TRACE) Urine Glucose (UA) Negativemg/dL (NEGATIVE) Urine Ketones Negativemg/dL (NEGATIVE) Urine Occult Blood Negative (NEGATIVE) Urine Nitrite Negative (NEGATIVE) Urine Bilirubin Negative (NEGATIVE) Urine Urobilinogen Normalmg/dL (NORMAL) Urine Leukocyte Esterase Negative (NEGATIVE) Urine RBC 0-2/hpf (0-2) Urine WBC 0-5/hpf (0-5) Urine Epithelial Cells Few/hpf (NONE-MOD) Urine Crystals None seen (NONE SEEN) Urine Bacteria Few/hpf (NONE-FEW) Urine Hyaline Casts None/lpf (NONE) Urine Granular Casts None seen (NONE SEEN) Urine Waxy Casts None seen (NONE SEEN) Urine Red Blood Cell Casts None seen (NONE SEEN) Urine White Blood Cell Casts None seen (NONE SEEN) Urine Mucus None seen (None Seen) Urine Trichomonas None seen (NONE SEEN) Urine Yeast None (NONE SEEN) Urinalysis Comment None Urine Culture Reflexed Not indicated Neutrophils (%) (Auto) 86.8% (40-74) Lymphocytes (%) (Auto) 11.6% (14-46) Monocytes (%) (Auto) 1.0% (4-12) Eosinophils (%) (Auto) 0.2% (0-5) Basophils (%) (Auto) 0.2% (0-3) Sodium Level 137mEq/L (134-144) Potassium Level 4.6mEq/L (3.5-5.2) Chloride Level 101mEq/L (97-108) Carbon Dioxide Level 24mmol/L (18-29) Blood Urea Nitrogen 24mg/dL (8-27) Creatinine 1.13mg/dL (0.57-1.00) Estimat Glomerular Filtration Rate 67mL/min (>59) Glucose Level 180mg/dL (60-99) Calcium Level 9.1mg/dL (8.5-10.1) Procalcitonin 0.06ng/mL (0.00-0.08) White Blood Count 5.8th/mm3 (3.8-10.1) Red Blood Count 3.44mil/mm3 (3.90-5.20) Hemoglobin 11.0g/dL (12.0-15.6) Hematocrit 32.3% (35.0-46.0) Mean Corpuscular Volume 93.9fL (81-100) Mean Corpuscular Hemoglobin 32.0pg (27.0-35.0) Mean Corpuscular Hemoglobin Concent 34.1% (32.0-37.0) Red Cell Distribution Width 13.7% (12.3-15.4) Platelet Count 241bil/L (150-400) Prothrombin Time 25.5sec (8.1-12.5) Prothromb Time International Ratio 2.34ratio Vancomycin Level Trough 15.1mcg/mL Discharge Medications Discharge Medications Citalopram (Citalopram) 20 Mg Tablet 20 MG PO QAM (Reported) Clindamycin (Clindamycin) 300 Mg Capsule 300 MG PO QID Prescribed by: JASON PEREZ MD Erlotinib HCl (Tarceva) 100 Mg Tablet 100 MG PO DAILY (Reported) Fluticasone/Vilanterol (Breo Ellipta 200-25 Mcg INH) 200 Mcg-25 Mcg/Dose Blst.w.dev 1 PUFF INHALATION DAILY (Reported) Furosemide (Furosemide) 20 Mg Tab 20 MG PO QAM (Reported) Metoprolol Tartrate (Metoprolol Tartrate) 25 Mg Tablet 25 MG PO BID (Reported) hold if b/p <105 or HR IS<60 Montelukast (Montelukast) 10 Mg Tablet 10 MG PO DAILY (Reported) Pravastatin (Pravastatin) 20 Mg Tablet 20 MG PO QAM (Reported) Prednisone (PredniSONE) 20 Mg Tablet 40 MG PO DAILY Prescribed by: JASON PEREZ MD Warfarin Sodium (Warfarin Sodium) 4 Mg Tablet 4 MG PO HS (Reported) Zolpidem (Zolpidem) 5 Mg Tablet 5 MG PO HS (Reported) As needed Albuterol Neb Soln (Albuterol Neb Soln) 0.63 Mg/3 Ml Vial.neb 0.63 MG INHALATION Q4H PRN PRN For Shortness of Breath (Reported) Albuterol Sulfate (Ventolin HFA Inhaler) 200 Puff/18 Gm Inhaler 1 PUFF INH Q4 PRN PRN For Wheezing Prescribed by: BREANNA MAHMOOD MD oxyCODONE-Acetaminophen 5-325 mg (oxyCODONE-Acetaminophen 5-325 mg) 1 Each Tablet 1-2 TAB PO Q4H PRN PRN For Pain Prescribed by: HANNY FORTUNE DO Followup Plan Disposition: home Follow-up plan 1. Followup with Dr. Gonzalez next week (04/07/17) as previously scheduled. Discharge Diet: Low fat, Low Sodium, Heart Healthy, Diabetic Discharge Activity: No restrictions Patient Instructions Seek immediate medical attention if any new or worsening signs or symptoms occur. Follow-up Provider: Yudith Gonzalez MD Time spent 35 min copies to: Yudith Gonzalez MD, Masoud April 01, 2017 14:18
== END 2017-04-01 12:35 | disposition home or self-care (01) | DRG 603 ==
LOC: SED 12:29 → MPC 16:06
PROVIDERS: ADMIT Internal Medicine; ATTEND Internal Medicine
DX: L03.221 Cellulitis of neck (principal); R04.2 Hemoptysis; I50.32 Chronic diastolic (congestive) heart failure; J44.1 Chronic obstructive pulmonary disease with (acute) exacerbation; I48.0 Paroxysmal atrial fibrillation; Z79.01 Long term (current) use of anticoagulants; Z90.5 Acquired absence of kidney; I12.9 Hypertensive chronic kidney disease with stage 1 through stage 4 chronic kidney disease, or unspecified chronic kidney disease; N18.9 Chronic kidney disease, unspecified; E78.5 Hyperlipidemia, unspecified; Z87.891 Personal history of nicotine dependence; Z85.118 Personal history of other malignant neoplasm of bronchus and lung; Z85.528 Personal history of other malignant neoplasm of kidney; D50.9 Iron deficiency anemia, unspecified; E11.42 Type 2 diabetes mellitus with diabetic polyneuropathy; Z66 Do not resuscitate

== ENCOUNTER 2017-04-11 05:48 | Inpatient (IN) | payer MEDICARE, OTHER ==
--- NOTE | 2017-04-08 13:04 | PCM.ANEPRE ---
Anesthesia Pre-Op Review Reason for Review: COMORBIDITIES Anesthesia Recommendations: Proceed with Procedure Additional Comments 76 y/o female scheduled for paraesophageal hernia repair with mesh. Comorbidities include: Lung Cancer/COPD: Dr. Watson evaluated patient and performed PFTs on . Showed nl forced vital capacity, nl total lung capacity, and moderate obstructive lung disease. Not home O2 dependent. Paroxysmal A Fib: Cleared for surgery by oncology pharmacist Dr. Queen on 02/14/17. NM stress test on 03/03/11 showed nl Left ventricular volume and systolic function. Echo 06/21 shoed EF 60-65% with some mild TR. 08/20/16 oncology pharmacist visit with Dr. Queen reported that the patient was in a sinus rhythm and optimized from a cardiac perspective. DM2 - Hbg A1c 6.2 Patient appears optimized. Continue with surgery as planned pending evaluation by DOS anesthesiologist. Michele Malagon MD Apr 08, 2017 13:04
[2017-04-11] VITALS (19 sets, daily range): BP systolic 110–193; BP diastolic 40–78; PULSE 54–84; RESP 12–23; O2SAT 93–99
[~2017-04-11] VITALS: Ht 167.6 cm; Wt 75.6 kg
[~2017-04-11 05:48] MED LIST changes: +CLIN-78 PO; +FLUT1BLS INHALATION; +FUR20 PO; -LOPE1TAB13 PO; +Lactated Ringer's 1,000 ML IV ONE; +MONT10TA23 PO; -ZOF8 PO
[2017-04-11] MEDS ORDERED: CeFAZolin Inj 2 GM in IV Premix 1 EACH IV ONE (06:00)
[2017-04-11 06:58] LABS: INR 0.94 ratio
[2017-04-11] MEDS ORDERED: FERR325T39 PO (07:21)
--- NOTE | 2017-04-11 08:06 | PCM.HPANE ---
Patient Data Surgeon Admitting Provider: Attending Provider:Jossie Zhang MD Primary Care Physician:Bret New MD Other Provider:Magdaleneoc,Fowler Anesthesia Reason for Visit Paraesophegeal Hernia Ht/WT & BMI Height (Feet): 5 Height (Inches): 6 Weight (Kilograms): 75.2 Body Mass Index 26.00 Allergies Coded Allergies: Penicillins (Verified Allergy, Severe, Rash, 04/08/17) fluticasone furoate (Verified Allergy, Severe, NECK SWELLING, 04/11/17) vilanterol (Verified Allergy, Severe, NECK SWELLING, 04/11/17) Past Anesthesia History Anesthesia History: Denies:: Abnormal Airway (rt neck swelling noted 03/2017), Anesthesia Reactions, Malignant Hyperthermia Diabetes History Hx Diabetes?: Yes (LAST HGB A1C 6.2) Type of Diabetes: Type II Glycemic Control: Diet Controlled MRSA MRSA: No Medications Blood Thinner: Coumadin Last Dose Blood Thinner: May 10, 2017 Hypertension Medication: Yes (LASIX) Home Meds Incl Beta Fox: Yes (METOPROLOL) Active Scripts Albuterol Sulfate (Ventolin HFA Inhaler)200 Puff/18 Gm Inhaler1 Puff INH Q4 PRN For Wheezing #1 Prov:Yana Fish MD 01/11/16 Reported Medications Ferrous Sulfate (Iron)325 Mg [id number] Mg PO DAILY 04/11/17 Furosemide 20 Mg Tab20 Mg PO QAM 03/30/17 Zolpidem 5 Mg Tablet5 Mg PO HS 02/23/17 Albuterol Neb Soln 0.63 Mg/3 Ml Vial.neb0.63 Mg INHALATION Q4H PRN For Shortness of Breath 02/23/17 Warfarin Sodium 4 Mg Tablet4 Mg PO HS 04/07/16 Erlotinib HCl (Tarceva)100 Mg Bjuvrn140 Mg PO DAILY 08/01/15 Metoprolol Tartrate 25 Mg Pslruz96 Mg PO BID hold if b/p <105 or HR IS<60 06/24/15 Citalopram 20 Mg Nwaixn41 Mg PO QAM 06/09/15 Pravastatin 20 Mg Yncwvb83 Mg PO QAM 03/30/14 Discontinued Reported Medications Fluticasone/Vilanterol (Breo Ellipta 200-25 Mcg INH)200 Mcg-25 Mcg/Dose Blst.w.dev1 Puff INHALATION DAILY 03/30/17 Montelukast 10 Mg Gvpunt42 Mg PO DAILY 03/30/17 Discontinued Scripts Clindamycin 300 Mg [id number] Mg PO QID #16 CAPSULE Ref 0 Prov:Prakash Rodriguezoud 04/01/17 Prednisone (PredniSONE)20 Mg Oracdl92 Mg PO DAILY #8 TABLET Ref 0 Prov:Prakash Rodirguezoud 04/01/17 oxyCODONE-Acetaminophen 5-325 mg 1 Each Tablet1-2 Tab PO Q4H PRN For Pain #40 TABLET Prov:Brooke Chaudhary DO 06/02/16 History History of ENT Problems?: Yes HEENT History: Positive for:: Cataracts Dysphagia (post cancer treatment, occasional difficulty) Sinus Problem (SEASONAL ALLERGIES S/P SINUS SURGERY) Denies:: Abnormal Airway (rt neck swelling noted 03/2017) Hearing Problem Denture Type: Full- Upper Teeth Condition: Within Normal Limits Other HEENT Pertinent History: S/P TONSILLECTOMY Hx of Heart Problems?: Yes Cardiovascular History: Positive for:: Atrial Fibrillation Chest Pain (EXERTIONAL) Congestive Heart Failure Edema (LE) Hypertension (HYPERLIPOIDEMIA) Irregular Heartbeat (PAF) Peripheral Vascular (S/P BALLOON ANGIO W/ STENT RT COMMON ILIAC ARTERY) Valvular Heart Disease (MILD TR) Denies:: Cardiac Surgery Heart Murmur (ECHO 06/2015 EF 60-65%) Pacemaker Thrombophlebitis Hx of Respiratory Problem?: Yes Respiratory History: Positive for:: Asthma COPD Dyspnea (COLLIER W/ WHEEZING PFT 01/2017-MOD OBSTRUCTIVE DISEASE) Hemoptysis (01/08/2016) Pneumonia Use of Inhalers / NEBS Denies:: Chest Surgery (LUNG CA-STAGE IV S/P LUNG BX,PORTACATH) Emphysema Tuberculosis Use of C-PAP Machine Hx Neurologic Problems?: Yes Neurological History: Positive for:: Dizziness Denies:: Alzheimer's Disease CVA Dementia Headaches Parkinson's Disease Seizures Hx of GI Problems?: Yes Other GI Pertinent History: S/P HERNIA RPR C/OF DIARRHEA Hx of Problems?: Yes Genitourinary History: Positive for:: Urinary Tract Infection Denies:: HX of Hemodialysis (HX CHRONIC RENAL INSUFFICIENCY) Kidney Stones HX of Peritoneal Dialysis: No Other Pertinent History: S/P LT RADICAL NEPHRECTOMY FOR CA Female Hx: Denies:: Currently (S/P BTL) Endometriosis Pelvic Inflammatory Problems with Breasts? Skin History: Denies:: History Skin Disorders? Pressure Ulcers Hx Musculoskeletal Problems?: Yes Musculoskeletal History: Positive for:: Musculoskeletal Trauma (HX LT CLAVICLE FX) Denies:: Back Injury Joint Replacement Hx of Psycho/Social Problems?: Yes Psycho Social History: Positive for:: Hx Depression Denies:: Anxiety Bipolar Disorder Suicide Attempt Hx Surgeries?: Yes (TONSIL,Tubal,HYST,L kidney, SINUS, Port placement, STENT PAD) Hx Any Other Health Problems?: Yes Other History: Positive for:: Cancer (LUNG, LT RENAL CELL CA) Hospitalization (pneumonia, lung CA, tachycardia, afib, bloody stool) Denies:: Endocrine Disease Thyroid Disease History Blood Transfusions: Denies:: Blood Transfuse Reaction Blood Transfusions Hx Diabetes: Yes (LAST HGB A1C 6.2) Hx Alcohol Use: NoHx Substance Use: No Smoking Status: Former Smoker Have You Smoked inLast 12 mo: NoApprox How Many Cigarettes/day: 30YR HX Stop/Bang S-Snoring: Do You Snore Loudly: No T-Tired: feel tired, fatigued: Yes O-Obsered: Observed not breath: No P-Blood Pressure: treated: Yes B- Body Mass Index > 35 kg/m2: No A- Age over 50: Yes N- Neck Large Circumference: Yes G- Gender Male: No MARIAH Total Score: 4 Risk Assessment Category Category 1A: Patient has history of documented sleep apnea, and HAS NOT received any narcotic, sedative or anesthesia administration during this stay. Category 1B: Patient has history of documented sleep apnea, and HAS received any narcotic , sedative or anesthesia administration during this stay Category 2: Patient has SUSPECTED Obstructive Sleep Apnea, and HAS received any narcotic , sedative or anesthesia administration during this stay. Category 3: Patient has SUSPECTED Obstructive Sleep Apnea and HAS NOT received narcotic, sedative or anesthesia administration during this stay. Category 4: Outpatient in Procedural Areas with known sleep apnea or who screen positive for High Risk via the STOP/BANG questionnaire. Exam Exam Vital Signs Vital Signs Date Time Temp Pulse Resp B/P Pulse Ox O2 Delivery O2 Flow Rate FiO2 04/11/17 06:19 36.1 54 12 110/75 96 Room Air General Appearance: Alert, Oriented X3, Cooperative, No Acute Distress HEENT/AIRWAY: MP 3 Lungs: Wheezes (Rt lung wallace expiratory) Heart: Exam Unremarkable Meds/Labs/Diagnostics Admission Meds Current Medications Lactated Ringer's (Lr) 1,000 ml @ 120 mls/hr Q8H20M ONCE IV Last administered on 04/11/17t 07:11; Start 04/11/17 at 05:00; Stop 04/11/17 at 13:19 Labs Test 04/11/17 06:30 Plan Impression Patient chart reviewed, patient interviewed and anesthestic plan with risks, benefits, and alternatives discussed, and informed consent obtained. NPO per Anesth. Guidelines: Yes ASA Physical Status: ASA3 Severe Disease (afib, lung cancer, chf) Anesthetic Plan: GA Bene/Risks/Altern/Consents: Yes HP Complete Prior to Induction: Yes Gary Sarkar MD Apr 11, 2017 07:14
[2017-04-11] MEDS ORDERED: Dexamethasone 4 mg/mL Inj IVPUSH PRN ×2 (08:20→11:45)
[2017-04-11] MEDS ORDERED: Lactated Ringer's 1,000 ML IV SCH ×2 (08:20→11:43)
[2017-04-11] MEDS ORDERED: Lactated Ringer's 500 ML IV PRN ×2 (08:20→11:43)
[2017-04-11] MEDS ORDERED: EPHEDrine Sulfate 50 mg/mL Inj IVPUSH PRN ×2 (08:20→11:45)
[2017-04-11] MEDS ORDERED: Phenylephrine 10,000 mCg/mL Inj IVPUSH PRN ×2 (08:20→11:45)
[2017-04-11] MEDS ORDERED: MetoCLOpramide 5 mg/mL 2 mL Inj IVPUSH PRN ×4 (08:20→12:35)
[2017-04-11] MEDS ORDERED: Ondansetron 2 mg/mL 2 mL Inj IVPUSH PRN ×4 (08:20→12:35)
[2017-04-11] MEDS ORDERED: Bupivacaine-MPF 0.5% W/EPI 30 mL Inj INFILTRATE ONE ×2 (08:31→11:21)
[2017-04-11] MEDS ORDERED: Lactated Ringer's 1,000 ML IV ONE (11:42)
[2017-04-11] MEDS ORDERED: MeTOProlol 1 mg/mL 5 mL Inj IVPUSH PRN (11:45)
[2017-04-11] MEDS ORDERED: fentaNYL-PF 50 mCg/mL 2 mL Inj IVPUSH PRN (11:45)
[2017-04-11] MEDS ORDERED: hydrALAZINE 20 mg/mL Inj IVPUSH PRN (11:45)
[2017-04-11] MEDS ORDERED: HYDROmorphone 1 mg/mL Inj IVPUSH PRN (11:45)
[2017-04-11] MEDS: HYDROmorphone 1 mg/mL Inj IVPUSH PRN ×2 (11:56→12:10)
[2017-04-11] MEDS: fentaNYL-PF 50 mCg/mL 2 mL Inj IVPUSH PRN ×3 (12:09→12:27)
[2017-04-11] MEDS ORDERED: ProchlorPERazine 5 mg/mL 2 mL Inj IVPUSH PRN (12:35)
[2017-04-11] MEDS ORDERED: Acetaminophen 32 mg/mL 5 mL Liquid PO SCH (12:35)
[2017-04-11] MEDS ORDERED: HYDROmorphone PCA 0.2 mg/mL 30 mL Inj IV PRN (12:35)
--- NOTE | 2017-04-11 12:40 | PCM.ANEP1 ---
Post Anesthesia PACU Phase 1 Assessment Vital Signs Vital Signs Date Time Temp Pulse Resp B/P Pulse Ox O2 Delivery O2 Flow Rate FiO2 04/11/17 12:29 83 13 137/40 94 Nasal Cannula 4 04/11/17 12:15 36.2 83 15 134/43 93 Nasal Cannula 4 04/11/17 12:00 80 23 132/41 93 Nasal Cannula 4 04/11/17 11:55 82 21 143/42 96 Nasal Cannula 4 04/11/17 11:50 80 22 147/44 94 Nasal Cannula 2 04/11/17 11:45 81 20 139/78 99 Simple Mask 8 04/11/17 11:39 36.1 83 18 193/59 99 Simple Mask 8 04/11/17 06:19 36.1 54 12 110/75 96 Room Air Anesthetic Administered: GA Level of Alertness: Awake, talking ROJAS's with Equal Strength: Yes Pain: No Nausea or Vomiting: No CV Function & Hydration Stable: Yes Airway Device: Oxygen Delivery: Simple Mask Lungs: Wheezes (Rt lung wallace expiratory) Dermatome Level: Full Sensation PACU Phase 2 Assessment Complications: No Patient Instructions Provided: N/A Gary Sarkar MD Apr 11, 2017 12:40
[2017-04-11] MEDS ORDERED: Rocuronium 10 mg/mL 5 mL Inj ONE (12:56)
[2017-04-11] MEDS ORDERED: fentaNYL-PF 50 mCg/mL 2 mL Inj ONE (12:56)
[2017-04-11] MEDS ORDERED: Dexamethasone 4 mg/mL Inj ONE (12:56)
[2017-04-11] MEDS ORDERED: Propofol 10,000 mCg/mL 20 mL Inj ONE (12:56)
[2017-04-11] MEDS ORDERED: EPHEDrine/NS 5 mg/mL 5 mL Syringe ONE (12:56)
[2017-04-11] MEDS ORDERED: Succinylcholine Chloride 20 mg/mL 5 mL Inj ONE (12:56)
[2017-04-11] MEDS ORDERED: MeTOProlol 1 mg/mL 5 mL Inj ONE (12:56)
[2017-04-11] MEDS: Dextrose 5% Lactated Ringer's 1,000 ML IV SCH (13:13)
[2017-04-11 13:20] LABS: Mean Corpuscular Hemoglobin 31.5 pg (27.0-35.0); Mean Corpuscular Volume 96.9 fL (81-100)
[2017-04-11] MEDS: oxyCODONE 1 mg/mL 5 mL Liquid PO SCH ×3 (13:36→20:11)
[2017-04-11] MEDS: Acetaminophen 32.5 mg/mL 20 mL Liquid PO SCH ×2 (13:43→20:06)
--- NOTE | 2017-04-11 14:00 | NUR ---
Admit to [facility] Pt transferred to [facility] from PACU at 1300 hrs. Pt drowsy but oriented x 3. On 4 lpm via nc. Two PIVs patent and asymptomatic. Pt has a skin tear on the left forearm covered with Tegaderm dressing. All personal possessions with pt. VSS. Family at bedside. Daughter had pt's cancer medication, Tarceva 100 mg. Medication sent to pharmacy. IV fluids started. Care continues.
[2017-04-11 14:19] LABS: COLOR,URINE YELLOW (YELLOW)
[2017-04-11 14:20] LABS: APPEARANCE,URINE CLEAR (CLEAR,HAZY); OCCULT BLOOD,URINE NEGATIVE (NEGATIVE); UROBILINOGEN,URINE NORMAL (NORMAL)
[2017-04-11] MEDS ORDERED: Albuterol 2.5 mg/3 mL Inhalation Solution NEB PRN (14:35)
[2017-04-11] MEDS: Heparin 5,000 Unit/mL Inj SUBQ SCH ×2 (14:59→22:21)
--- NOTE | 2017-04-11 15:11 | PCM.SURGOP ---
Surgical Operative Report Date of Service: Apr 11, 2017 Pre Operative Diagnosis Paraesophageal hernia Post Operative Diagnosis Paraesophageal hernia Procedure: Laparoscopic paraesophageal hernia repair with Toupet fundoplication Surgeon and Cement Truck Driver: Surgeon: Jossie Zhang MD Assistants: Chung Carbone MD; Marcus Adorno PA-C; Debra Manjarrez MS3 Indication for Procedure This is a 76-year-old woman with a large symptomatic paraesophageal hernia. She also has a history of stage IV lung cancer, treated with chemoradiation, erlotinib, and stereotactic radiation to a contralateral metastasis, currently with stable disease/not progressing and a history of a left radical nephrectomy for renal cell cancer last year. With regards to her paraesophageal hernia, she has symptoms of reflux including acid brash, heartburn, severe cough, and she also has repeated episodes of asthma, anemia, early satiety, and possible silent aspiration. Because of her significant symptom complex and the stability of her lung cancer, her oncologist requested consideration of paraesophageal hernia repair. She underwent full cardiac and pulmonary workup in anticipation of this operation. Findings: Large paraesophageal hernia with approximately one half of the stomach in the chest. Procedure Details The patient was brought to the operating room and placed in supine position. General endotracheal anesthesia was smoothly induced. A warming blanket and SCDs were placed. The patient was repositioned into low lithotomy with the left arm tucked. Antibiotics were infused. The operative field was prepped and draped in a sterile fashion. A pause was performed to confirm the correct patient, procedure, and site. The abdomen was accessed using a Veress needle in the left upper quadrant after controlling the fascia and was insufflated. An 11 mm Optiview port was inserted and intraperitoneal insufflation began. A 5mm port was then placed in the mid abdomen just to the left of midline. A 5 mm port was placed in the mid abdomen laterally on the left. A 5mm liver retractor was used with placement in a right lateral position. A 5mm trocar was placed in the right upper quadrant. An additional 5 mm port was placed in the left mid abdomen for the diver assistant's left hand. The stomach was identified and carefully reduced out of the mediastinum. The short gastrics were taken down using LigaSure device. Dissection proceeded at the hiatus starting on the left. The plane between the hernia sac and pleura was entered and the hernia sac was carefully removed from the mediastinum. No defects were made in the pleura during this portion of the dissection. The gastrohepatic ligament was then divided up to the right wai and the right sided dissection was completed with care taken to preserve the entire wai and both vagi. Once the esophagus was fully dissected circumferentially, a Sieper drain was then placed around the esophagus at the gastroesophageal junction for retraction to facilitate a more proximal esophageal dissection. This proceeded proximally until there was 5 cm of intra- abdominal esophagus. The crural closure was then performed. Several 2-0 silk stitches were placed to reapproximate the posterior crura with minimal tension. A final stitch was placed The reduced hernia sac was removed using the LigaSure device, with care taken to avoid injury to the stomach, esophagus, or vagus during this portion of the procedure. Attention was turned to the to Toupet fundoplication. A Toupet was chosen due to data demonstrating that it is equivalent for postoperative reflux but improves postoperative dysphagia and gas bloat, and the risk of bougie placement is avoided. A marking stitch was placed on the posterior fundus, 3 cm distal to the gastroesophageal junction and 2 cm posterior to the greater curvature. This was brought around posteriorly to align the geometry of the fundoplication. The first stitch was placed in the fundus just proximal to the marking stitch, to the esophagus at and 11 o'clock position, and to the right wai at the 11 o'clock position. The second stitch was placed from the posterior aspect of the right fundoplication to the bilateral crura posteriorly. The Pepe drain was removed. Two additional stitches were then placed from the right side of the fundoplication to an 11 o'clock position on the esophagus. Care was taken to avoid inclusion of the anterior vagus in the stitches. The marking stitch was removed. Attention was then turned to the left side of the wrap. An appropriate position on the fundus was chosen to create symmetrical geometry of the fundoplication. The first stitch on the left was placed from the wrap to the esophagus to the wai, again with care taken to avoid inclusion of the anterior vagus in the stitch. Two additional sutures were then placed from the wrap to the esophagus, each 1 cm distal to the previous one. A final coronal stitch was placed from the left posterior fundoplication to the posterior aspect of the left wai. Once the procedure was complete, the 5 mm ports were removed under direct vision and the abdomen was desufflated. 0.5% Marcaine with epinephrine was infused at all port sites. Skin was closed with 4-0 Monocryl. Sterile dressings were placed. All sponge, instrument, and needle counts were correct at the end of the procedure. The patient was awakened from general anesthesia and taken to the postoperative care unit in good condition. Complications There were no periprocedural complications identified. Surgical Specimen Removed: Yes Specimen sent to Pathology: No Surgical Specimen description: Hernia sac Anesthetic Plan: GA Grafts, Implants: None Output, Estimated Blood Loss: 2 (ml) Blood Administration during santacruz: No Jossie Zhang MD Apr 11, 2017 15:11
[2017-04-11] MEDS: Insulin Human REGular 300 Unit/3 mL Inj SUBQ SCH ×3 (16:06→20:09)
[2017-04-12] VITALS (8 sets, daily range): BP systolic 138–192; BP diastolic 54–72; PULSE 52–60; RESP 14–20; O2SAT 91–98
[2017-04-12] MEDS: oxyCODONE 1 mg/mL 5 mL Liquid PO SCH ×5 (00:44→16:18)
[2017-04-12] MEDS: Dextrose 5% Lactated Ringer's 1,000 ML IV SCH ×2 (01:13→13:35)
[2017-04-12] MEDS: Insulin Human REGular 300 Unit/3 mL Inj SUBQ SCH ×3 (02:30→14:30)
[2017-04-12] MEDS: Acetaminophen 32.5 mg/mL 20 mL Liquid PO SCH ×3 (02:49→14:42)
--- NOTE | 2017-04-12 03:58 | NUR ---
B/P Elevated B/P at midnight; given one 5 mg dose of IV Hydralazine per prn orders with good results. Pt tolerated well.
[2017-04-12] MEDS: Heparin 5,000 Unit/mL Inj SUBQ SCH ×2 (05:36→13:30)
[2017-04-12 06:02] LABS: Mean Corpuscular Hemoglobin 31.4 pg (27.0-35.0); Mean Corpuscular Volume 97.8 fL (81-100)
--- NOTE | 2017-04-12 06:04 | NUR ---
Low urine output Pt requested removal of pelletier catheter early related to discomfort. Through night she did not feel urge to void nor have discomfort. Able to urinate small amount in early am, post void bladder scan did not show show large accumulation. Pt reports chronic low urine output related to prior nephrectomy. IV fluids continue to infuse. Hourly rounding ongoing.
--- NOTE | 2017-04-12 06:07 | NUR ---
Pain Shoulder pain resolving, pt is now more aware of incisional pain. Adequately controlled with scheduled oral medications. INSTRUCTIONAL TECHNOLOGY DIRECTOR discontinued, had not been used since before midnight.
--- NOTE | 2017-04-12 08:28 | PCM.PNSURG ---
Subjective Visit Information: Reason for Visit Paraesophegeal Hernia Surgery/Surgery Date HERNIA REPAIR 04/11/17 Post-Op Day # Date of Admission: Apr 11, 2017 at 12:55 Hospital Day # Subjective: Stable overnight. Tolerated CLD and Boost with no nausea or vomiting. HTN overnight. Low UOP in RN note but I/O show 2150mL UOP. Cr decreased compared to yesterday. Hct decreased compared to yesterday. Pt alert and interactive this am. Objective Vital Sign- Last 8 Hours Date Time Temp Pulse Resp B/P Pulse Ox O2 Delivery O2 Flow Rate FiO2 04/12/17 08:21 60 180/72 04/12/17 05:59 36.7 58 16 146/54 97 Nasal Cannula 2.00 04/12/17 05:39 18 98 04/12/17 03:00 18 98 04/12/17 01:32 52 149/54 04/12/17 00:39 36.9 58 14 192/69 98 Nasal Cannula 1.00 Intake and Output- Last 8 Hour 04/12/17 Cumulative From/Thru 07:00 04/08/17 09:22 - 04/12/17 06:10 Intake Total 1294 ml 3896 ml Output Total 2150 ml 2447 ml Balance -856 ml 1449 ml Intake Oral 400 ml 640 ml IV Total 894 ml 3256 ml Output Urine Total 2150 ml 2440 ml Estimated Blood Loss 7 ml # Bowel Movements 0 General: Alert, Oriented X3, Cooperative Abdomen: Soft, Appropriately tender, Non-distended Result Diagram: 04/12/17 0441 04/12/17 0441 Assessment & Plan Impression POD1 laparoscopic paraesophageal hernia repair doing well. Problems: Plan Advance to FLD Oral pain meds Nutrition consult Ambulation Recheck Hct at noon Possible discharge later today. Jossie Zhang MD Apr 12, 2017 08:28
[2017-04-12] MEDS ORDERED: ERLOTINIB 100 MG PO SCH (08:30)
[2017-04-12] MEDS ORDERED: OXYC5SOL11 PO (10:00)
--- NOTE | 2017-04-12 10:01 | PCM.DISURG ---
Surgical Discharge Instruction Date of Service Apr 12, 2017 Dates of Hospitalization Date of Hospital Admission Apr 11, 2017 at 12:55 Providers Admitting Physician: Jossie Zhang MD Primary Care Physician: Bret New MD Attending Physician: Jossie Zhang MD Discharge Diagnosis Discharge Diagnosis Paraesophageal hernia Post Operative diagnosis Paraesophageal hernia Diet Discharge Diet: Other (Liquid/purees) Activity Discharge Activity-General: No lifting >15 pounds for 2 weeks Dressing and Incisional Care Dressing Care: Allow Steri Stripes to fall off, Remove outer dressing after 24 hrs Hygiene: May shower Follow Up Plan Follow Up Plan Follow up with Dr. Zhang in 2 weeks. Jossie Zhang MD Apr 12, 2017 10:01
--- NOTE | 2017-04-12 12:43 | NUR ---
Pain Patient reported 5/10 shoulder/neck pain. 5mg of oxycodone given. Denies nausea. Heat applied to shoulder/neck area. Patient repositions self for comfort. Call light and tray table within reach. Will continue to monitor patient hourly.
--- NOTE | 2017-04-12 16:30 | NUR ---
Discharge Patient discharged home. IV DC'd and intact. Discharge instructions given with no questions. RX oxycodone given to patient. Teaching information on oxycodone, full liquid diet, and laparoscopic hiatal hernia given to patient. Dressings CDi. Patient and patient's daughter gathered all belongings. Patient personal medications of erlotinib and inhaler given to patient. Student nurse escorted patient out via walking.
--- NOTE | 2017-04-13 12:57 | PCM.DC.SUR ---
Discharge Summary Date of Service: Apr 13, 2017 Date of Hospital Admission: Apr 11, 2017 at 12:55 Date of Operation(s): April 11, 2017 Date of Discharge: April 12, 2017 Diagnosis at Time of Discharge Paraesophageal hernia Problems: (1) Primary adenocarcinoma of lung Status: Acute ICD Code: C34.90 (2) Renal cell carcinoma Status: Acute ICD Code: C64.9 (3) Asthma Status: Acute ICD Code: J45.909 (4) Non-cardiac chest pain Status: Acute ICD Code: R07.89 Operation Laparoscopic paraesophageal hernia repair with Toupet fundoplication Brief History and Physical: This is a 76-year-old woman with a large symptomatic paraesophageal hernia. She also has a history of stage IV lung cancer, treated with chemoradiation, erlotinib, and stereotactic radiation to a contralateral metastasis, currently with stable disease/not progressing and a history of a left radical nephrectomy for renal cell cancer last year. With regards to her paraesophageal hernia, she has symptoms of reflux including acid brash, heartburn, severe cough, and she also has repeated episodes of asthma, anemia, early satiety, and possible silent aspiration. Because of her significant symptom complex and the stability of her lung cancer, her oncologist requested consideration of paraesophageal hernia repair. She underwent full cardiac and pulmonary workup in anticipation of this operation. Vital Sign- Last 8 Hours Date Time Temp Pulse Resp B/P Pulse Ox O2 Delivery O2 Flow Rate FiO2 04/12/17 08:21 60 180/72 04/12/17 05:59 36.7 58 16 146/54 97 Nasal Cannula 2.00 04/12/17 05:39 18 98 04/12/17 03:00 18 98 04/12/17 01:32 52 149/54 04/12/17 00:39 36.9 58 14 192/69 98 Nasal Cannula 1.00 Intake and Output- Last 8 Hour 04/12/17 Cumulative From/Thru 07:00 04/08/17 09:22 - 04/12/17 06:10 Intake Total 1294 ml 3896 ml Output Total 2150 ml 2447 ml Balance -856 ml 1449 ml Intake Oral 400 ml 640 ml IV Total 894 ml 3256 ml Output Urine Total 2150 ml 2440 ml Estimated Blood Loss 7 ml # Bowel Movements 0 General: Alert, Oriented X3, Cooperative Abdomen: Soft, Appropriately tender, Non-distended Result Diagram: 04/12/17 0441 04/12/17 0441 Consultants: None Hospital Course: The patient was admitted and taken to the operating room for a laparoscopic paraesophageal hernia repair with Toupet fundoplication. Please see the operative notes for details of the procedure. The patient tolerated the procedure well and was taken to the orthopedic and surgical care unit where she remained for the balance of her hospital stay. On postoperative day number one she was found to have adequate pain control utilizing oral pain medication and she was able to tolerate a soft diet. She was then discharged to home in good condition. Pathology: None. Disposition: Home in good condition. Follow-up Plan: Discharge Diet: Other (Liquid/purees) Discharge Activity-General: No lifting >15 pounds for 2 weeks Dressing Care: Allow Steri Stripes to fall off, Remove outer dressing after 24 hrs Hygiene: May shower Follow Up PlanFollow up with Dr. Zhang in 2 weeks. Albuterol Neb Soln (Albuterol Neb Soln) 0.63 Mg/3 Ml Vial.neb 0.63 MG INHALATION Q4H PRN PRN For Shortness of Breath (Reported) Albuterol Sulfate (Ventolin HFA Inhaler) 200 Puff/18 Gm Inhaler 1 PUFF INH Q4 PRN PRN For Wheezing Citalopram (Citalopram) 20 Mg Tablet 20 MG PO QAM (Reported) Erlotinib HCl (Tarceva) 100 Mg Tablet 100 MG PO DAILY (Reported) Ferrous Sulfate (Iron) 325 Mg Tablet 325 MG PO DAILY (Reported) Furosemide (Furosemide) 20 Mg Tab 20 MG PO QAM (Reported) Metoprolol Tartrate (Metoprolol Tartrate) 25 Mg Tablet 25 MG PO BID (Reported) hold if b/p <105 or HR IS<60 Pravastatin (Pravastatin) 20 Mg Tablet 20 MG PO QAM (Reported) Warfarin Sodium (Warfarin Sodium) 4 Mg Tablet 4 MG PO HS (Reported) Zolpidem (Zolpidem) 5 Mg Tablet 5 MG PO HS (Reported) oxyCODONE (oxyCODONE) 5 Mg/5 Ml Solution 5-10 MG PO Q4H copies to: Bret New MD, Samuel L PA-C Apr 13, 2017 12:56
== END 2017-04-12 16:26 | disposition home or self-care (01) | DRG 328 ==
LOC: SAS 05:48 → OSC 12:55
PROVIDERS: ADMIT Surgery; ATTEND Surgery
PROC: 0DV44ZZ Restriction of Esophagogastric Junction, Percutaneous Endoscopic Approach (ICD-10-PCS; principal; 2017-04-11 07:30)
DX: K44.9 Diaphragmatic hernia without obstruction or gangrene (principal); I10 Essential (primary) hypertension; E11.9 Type 2 diabetes mellitus without complications; Z87.891 Personal history of nicotine dependence; Z90.5 Acquired absence of kidney; I48.0 Paroxysmal atrial fibrillation; Z79.01 Long term (current) use of anticoagulants